=== PATIENT | male | born 1980 | race Two or more races ===

== ENCOUNTER 2017-08-05 21:41 | Inpatient (IN) | payer OTHER ==
[~2017-08-05] VITALS: Ht 167.6 cm; Wt 54.0 kg
[~2017-08-05 21:41] MED LIST: AMITRIPTYLINE H25 MG ORAL; GABAPENTIN300 MG ORAL; LANTUS5 UNITS SUBQ; LEVEMIR FL100 UNIT/1 SUBQ; METFORMIN HCL1000 M1 ORAL; NOVOLOG100 UNITS1 SUBQ
[2017-08-05] MEDS ORDERED: Morphine Sulfate 4mg/ml Inj IVP ONE (22:30)
[2017-08-05 22:41] LABS: HEMATOCRIT 51.7 % (42.0-52.0); HEMOGLOBIN 17.3 G/DL (14.2-18.0); MEAN CORPUSCULAR VOLUME 91 FL (80-99); PLATELET COUNT 376 K/UL (150-450); RED CELL DISTRIBUTION WIDTH 10.9 % (11.6-14.8); WHITE BLOOD COUNT 17.2 K/UL (4.8-10.8)
[2017-08-05 22:43] LABS: BASOPHILS % (AUTO) 0.6 % (0.0-2.0); LYMPHOCYTES % (AUTO) 6.2 % (20.0-45.0); MONOCYTES % (AUTO) 5.8 % (1.0-10.0); NEUTROPHILS % (AUTO) 87.3 % (45.0-75.0)
[2017-08-05 22:49] VITALS: BP_SYST 110; BP_SYST 121; BP_DIAS 63; BP_DIAS 75
[2017-08-05 23:41] LABS: ALBUMIN 4.2 G/DL (3.4-5.0); BILIRUBIN,TOTAL 0.7 MG/DL (0.2-1.0); BLOOD UREA NITROGEN 28 mg/dL (7-18); CALCIUM 8.9 MG/DL (8.5-10.1); CREATININE 1.9 MG/DL (0.55-1.30)
[2017-08-05 23:46] LABS: APPEARANCE,URINE CLEAR; BILIRUBIN, URINE NEGATIVE (NEGATIVE); COLOR,URINE PALE YELLOW; GLUCOSE, URINE (UA) 4+ (NEGATIVE); KETONES,URINE 4+ (NEGATIVE); LEUKOCYTE ESTERASE ,URINE NEGATIVE (NEGATIVE); NITRITE,URINE NEGATIVE (NEGATIVE); PH,URINE 5 (4.5-8.0); PROTEIN,URINE 2+ (NEGATIVE); UROBILINOGEN,URINE NORMAL MG/DL (0.0-1.0)
[2017-08-06] VITALS (20 sets, daily range): BP systolic 100–138; BP diastolic 56–107
[2017-08-06 00:09] LABS: ALANINE AMINOTRANSFERASE 32 U/L (12-78); ALKALINE PHOSPHATASE 137 U/L (46-116); ANION GAP 34 mmol/L (5-15); ASPARTATE AMINO TRANSFERASE 36 U/L (15-37); CHLORIDE 91 MMOL/L (98-107); SODIUM 130 MMOL/L (136-145)
[2017-08-06 00:19] LABS: CARBON DIOXIDE 6 MMOL/L (21-32); POTASSIUM 5.7 MMOL/L (3.5-5.1)
[2017-08-06] MEDS ORDERED: Morphine Sulfate 4mg/ml Inj IVP ONE (00:30)
[2017-08-06] MEDS ORDERED: Sodium Bicarbonate 50ml Carp IV ONE (01:45)
[2017-08-06 03:04] LABS: ALANINE AMINOTRANSFERASE 27 U/L (12-78); ALBUMIN 3.8 G/DL (3.4-5.0); ALBUMIN/GLOBULIN RATIO 1.1 (1.0-2.7); ALKALINE PHOSPHATASE 121 U/L (46-116); ANION GAP 30 mmol/L (5-15); ASPARTATE AMINO TRANSFERASE 15 U/L (15-37); BILIRUBIN,TOTAL 0.5 MG/DL (0.2-1.0); BLOOD UREA NITROGEN 30 mg/dL (7-18); CALCIUM 7.6 MG/DL (8.5-10.1); CHLORIDE 102 MMOL/L (98-107); CREATININE 1.5 MG/DL (0.55-1.30); SODIUM 138 MMOL/L (136-145)
[2017-08-06 03:08] LABS: CARBON DIOXIDE 6 MMOL/L (21-32)
[2017-08-06] MEDS ORDERED: NS w/KCl 40mEq 1,000 ML IV SCH (03:15)
[2017-08-06] MEDS: NS w/KCl 20mEq 1,000 ML IV SCH ×3 (03:45→15:39)
--- NOTE | 2017-08-06 03:53 | Emergency Room Report ---
History of Present Illness General Chief Complaint: Abnormal Labs Source: Patient, EMS Present Illness HPI 37-year-old male presents ED for evaluation. Patient brought in by EMS. Accu- Chek critically high tonight. With nausea and vomiting. History of diabetes. Took insulin just prior to arrival. Denies fevers or chills. Denies chest pain. States he is compliant with his medications. Brother aggravating relieving factors. Denies any other associated symptoms Allergies: Coded Allergies: No Known Allergies (Unverified , 08/05/17) Patient History Past Medical History: DM Past Surgical History: none Pertinent Family History: none Social History: Denies: smoking, alcohol use, drug use Immunizations: UTD Reviewed Nursing Documentation: PMH: Agreed, PSxH: Agreed Nursing Documentation-PMH Hx Diabetes: Yes Review of Systems All Other Systems: negative except mentioned in HPI Physical Exam Vital Signs Date Time Temp Pulse Resp B/P (MAP) Pulse Ox O2 Delivery O2 Flow Rate FiO2 08/05/17 21:36 92.9 96 26 135/82 98 Room Air 92.8 Sp02 EP Interpretation: reviewed, normal General Appearance: alert, GCS 15, non-toxic, mild distress Head: normocephalic, atraumatic Eyes: bilateral eye normal inspection, bilateral eye PERRL ENT: hearing grossly normal, normal pharynx, no angioedema, normal voice Neck: full range of motion, supple/symm/no masses Respiratory: chest non-tender, lungs clear, normal breath sounds, speaking full sentences Cardiovascular #1: regular rate, rhythm, no edema Cardiovascular #2: 2+ carotid (R), 2+ carotid (L), 2+ radial (R), 2+ radial (L) , 2+ dorsalis pedis (R), 2+ dorsalis pedis (L) Gastrointestinal: normal bowel sounds, non tender, soft, non-distended, no guarding, no rebound Rectal: deferred Genitourinary: normal inspection, no CVA tenderness Musculoskeletal: back normal, gait/station normal, normal range of motion, non- tender Neurologic: alert, oriented x3, responsive, motor strength/tone normal, sensory intact, speech normal Psychiatric: judgement/insight normal, memory normal, mood/affect normal, no suicidal/homicidal ideation Reflexes: 3+ bicep (R), 3+ bicep (L), 3+ tricep (R), 3+ tricep (L), 3+ knee (R) , 3+ knee (L) Skin: normal color, no rash, warm/dry, well hydrated Lymphatic: no adenopathy Procedures Critical Care Time Critical Care Time i. I feel this is a highly complex case requiring extensive working including EKG/Rhythm strip, Xray/CT/US, Blood/urine lab work, repeat exams while in ED, and administration of strong opiates/narcotics for pain control, admission to hospital or close patient follow up. Total time: 30 min bedside evaluation and treatment excludes procedures (EKG). Reason for critical care: DKA Possible complications: hypotension, hypertension, IL, shock, arrhythmias, metabolic acidosis, end organ damage, respiratory failure. Interventions: Labs, IV fluids, ABG. Insulin. Insulin drip. Course: Patient presenting with critically high Accu-Chek. History of diabetes. Glucose greater than 500. Bicarbonate 6. Anion gap greater than 30. Ketones positive. Given IV fluids. Started on insulin bolus. Started on insulin drip. Consultations: nursing staff, EMS, family Performed by: Dr Gore Tolerated well condition = critical j. because of unstable vital signs this patient had a condition that could potentially threaten life or limb. I feel this is a critical patient who required my full attention while patient was considered critical. Total Critical Care Time excluding procedures was greater than 35 minutes Medical Decision Making Diagnostic Impression: Primary Impression: DKA (diabetic ketoacidoses) Qualified Codes: E13.10 - Other specified diabetes mellitus with ketoacidosis without coma Additional Impression: Renal insufficiency ER Course Hospital Course 37-year-old male presenting to ED with nausea/vomiting, glucometer critically high Differential diagnoses include: ETOH/drug ingestion, sepsis, DKA Clinical course Patient placed on stretcher. On gambling monitor. After initial history and physical I ordered labs, IVFs Labs-glucose greater than 500, anion gap > 30, bicarbonate 6, BUN/creatinine elevated. Leukocytosis noted. K 5.7 Given 2 L of IV fluids, Insulin bolus given, insulin drip started pH 6.9 on ABG. given 2 amps of bicarbonate Patient has [employer] insurance. However unstable for transfer. approved to admit here Case discussed with Dr. Baires and he agreed to accept the patient to his service for further care and support i. I feel this is a highly complex case requiring extensive working including EKG/Rhythm strip, Xray/CT/US, Blood/urine lab work, repeat exams while in ED, and administration of strong opiates/narcotics for pain control, admission to hospital or close patient follow up. j. because of unstable vital signs this patient had a condition that could potentially threaten life or limb. I feel this is a critical patient who required my full attention while patient was considered critical. Total Critical Care Time excluding procedures was greater than 35 minutes diagnosis - DKA admitted to ICU in critical condition Labs Test 08/05/17 22:10 08/05/17 23:15 08/06/17 01:08 08/06/17 02:39 White Blood Count 17.2 K/UL (4.8-10.8) Red Blood Count 5.70 M/UL (4.70-6.10) Hemoglobin 17.3 G/DL (14.2-18.0) Hematocrit 51.7 % (42.0-52.0) Mean Corpuscular Volume 91 FL (80-99) Mean Corpuscular Hemoglobin 30.4 PG (27.0-31.0) Mean Corpuscular Hemoglobin Concent 33.5 G/DL (32.0-36.0) Red Cell Distribution Width 10.9 % (11.6-14.8) Platelet Count 376 K/UL (150-450) Mean Platelet Volume 6.5 FL (6.5-10.1) Neutrophils (%) (Auto) 87.3 % (45.0-75.0) Lymphocytes (%) (Auto) 6.2 % (20.0-45.0) Monocytes (%) (Auto) 5.8 % (1.0-10.0) Eosinophils (%) (Auto) 0.0 % (0.0-3.0) Basophils (%) (Auto) 0.6 % (0.0-2.0) Sodium Level 130 MMOL/L (136-145) 138 MMOL/L (136-145) Potassium Level 5.7 MMOL/L (3.5-5.1) 4.0 MMOL/L (3.5-5.1) Chloride Level 91 MMOL/L (98-107) 102 MMOL/L (98-107) Carbon Dioxide Level 6 MMOL/L (21-32) 6 MMOL/L (21-32) Anion Gap 34 mmol/L (5-15) 30 mmol/L (5-15) Blood Urea Nitrogen 28 mg/dL (7-18) 30 mg/dL (7-18) Creatinine 1.9 MG/DL (0.55-1.30) 1.5 MG/DL (0.55-1.30) Estimat Glomerular Filtration Rate 39.9 mL/min (>60) 52.4 mL/min (>60) Glucose Level 568 MG/DL (74-106) 410 MG/DL (74-106) Calcium Level 8.9 MG/DL (8.5-10.1) 7.6 MG/DL (8.5-10.1) Magnesium Level 2.7 MG/DL (1.8-2.4) Total Bilirubin 0.7 MG/DL (0.2-1.0) 0.5 MG/DL (0.2-1.0) Aspartate Amino Transf (AST/SGOT) 36 U/L (15-37) 15 U/L (15-37) Alanine Aminotransferase (ALT/SGPT) 32 U/L (12-78) 27 U/L (12-78) Alkaline Phosphatase 137 U/L (46-116) 121 U/L (46-116) Total Protein 8.6 G/DL (6.4-8.2) 7.3 G/DL (6.4-8.2) Albumin 4.2 G/DL (3.4-5.0) 3.8 G/DL (3.4-5.0) Globulin 4.4 g/dL 3.5 g/dL Albumin/Globulin Ratio 1.0 (1.0-2.7) 1.1 (1.0-2.7) Lipase 54 U/L (73-393) Acetone Level Positive-small (NEGATIVE) Urine Color Pale yellow Urine Appearance Clear Urine pH 5 (4.5-8.0) Urine Specific [place] 1.020 (1.005-1.035) Urine Protein 2+ (NEGATIVE) Urine Glucose (UA) 4+ (NEGATIVE) Urine Ketones 4+ (NEGATIVE) Urine Occult Blood 1+ (NEGATIVE) Urine Nitrite Negative (NEGATIVE) Urine Bilirubin Negative (NEGATIVE) Urine Urobilinogen Normal MG/DL (0.0-1.0) Urine Leukocyte Esterase Negative (NEGATIVE) Urine RBC 0-2 /HPF (0 - 0) Urine WBC 0 /HPF (0 - 0) Urine Squamous Epithelial Cells Few /LPF (NONE/OCC) Urine Bacteria Few /HPF (NONE) Urine Hyaline Casts 0-2 /LPF (NONE) Urine Coarse Granular Casts 0-2 /LPF (NONE) Arterial Blood pH 6.950 (7.350-7.450) Arterial Blood Partial Pressure CO2 10.9 mmHg (35.0-45.0) Arterial Blood Partial Pressure O2 97.7 mmHg (75.0-100.0) Arterial Blood HCO3 2.4 mmol/L (22.0-26.0) Arterial Blood Oxygen Saturation 96.1 % (92.0-98.0) Arterial Blood Base Excess -27.9 Ace Test N/a Test 08/06/17 02:55 Lactic Acid Level 2.60 mmol/L (0.66-2.22) Last Vital Signs Date Time Temp Pulse Resp B/P (MAP) Pulse Ox O2 Delivery O2 Flow Rate FiO2 08/06/17 03:06 114 20 134/107 100 Room Air 08/06/17 02:04 94.7 94.7 Status: improved Disposition: ADMITTED INPATIENT Condition: Critical Referrals: [facility] (PCP) MARNI GORE M.D. Aug 06, 2017 03:53
[2017-08-06] MEDS ORDERED: D5 1/2NS w/KCl 20mEq 1,000 ML IV SCH ×2 (06:30→10:00)
[2017-08-06 07:23] LABS: ANION GAP 16 mmol/L (5-15); BLOOD UREA NITROGEN 24 mg/dL (7-18); CALCIUM 7.6 MG/DL (8.5-10.1); CARBON DIOXIDE 14 MMOL/L (21-32); CHLORIDE 110 MMOL/L (98-107); CREATININE 1.1 MG/DL (0.55-1.30); POTASSIUM 4.3 MMOL/L (3.5-5.1); SODIUM 140 MMOL/L (136-145)
[2017-08-06 07:28] LABS: ALANINE AMINOTRANSFERASE 24 U/L (12-78); ALBUMIN 3.2 G/DL (3.4-5.0); ALKALINE PHOSPHATASE 96 U/L (46-116); ASPARTATE AMINO TRANSFERASE 20 U/L (15-37); BILIRUBIN,TOTAL 0.6 MG/DL (0.2-1.0)
[2017-08-06] MEDS ORDERED: LANTUS SOL100 UNIT/1 SUBQ (08:34)
--- NOTE | 2017-08-06 09:43 | Diagnostic Imaging Report ---
Indication: Shortness of breath Technique: One view of the chest Comparison: none Findings: Lungs and pleural spaces are clear. Heart size is normal Impression: No acute process
[2017-08-06] MEDS: Insulin Rate Change 1 Each MISC PRN ×3 (11:09→13:40)
--- NOTE | 2017-08-06 11:10 | Pulmonolgy Critical Care Note ---
Critical Care - Asmt/Plan Assessment/Plan: ASSESSMENT DKA DM type 1 intractable n/v dehydration ( due to n/v) LAKE 2 to dehydration lactic acidosis leukocytosis URI PLAN OF CARE ICU care generous IV hydration insulin gtt per protocol monitor lytes, renal parameters, correct lytes as needed, avoid nephrotoxic check HgA1c endo eval DVT prophylaxis a/emetic prn diet as tolerated symptomatic care; CXR negative, influenza screen negative case discussed and evaluated by supervising physician Critical Care - Objective Last 24 Hour Vital Signs Date Time Temp Pulse Resp B/P (MAP) Pulse Ox O2 Delivery O2 Flow Rate FiO2 08/06/17 10:25 99.0 08/06/17 10:00 92 14 110/65 100 Room Air 08/06/17 09:04 99.0 98 11 112/77 100 Room Air 99.0 08/06/17 08:50 98.9 94 14 129/85 100 Room Air 08/06/17 07:02 98 11 112/77 100 Room Air 08/06/17 06:16 99.0 106 14 114/75 100 Room Air 99.0 08/06/17 05:20 97.9 97.9 08/06/17 04:09 98.0 115 30 135/98 100 Room Air 98.0 08/06/17 03:06 114 20 134/107 100 Room Air 08/06/17 02:04 94.7 112 25 138/97 100 Room Air 94.7 08/06/17 00:30 92.4 92.4 08/05/17 22:49 20 121/75 100 Room Air 08/05/17 21:36 92.9 96 26 135/82 98 Room Air 92.8 Status: awake Condition: critical HEENT: atraumatic, normocephalic Neck: full ROM Lungs: clear Heart: HR/BP stable - SR on tele , regular Abdomen: soft, non-tender, active bowel sounds Extremities: no C/C/E Micro: Microbiology Date/Time Source Procedure Growth Status 08/06/17 04:50 Nasal Nares Influenza Types A,B Antigen (ANTOINETTE) - Final Complete Accucheck: 120 Critical Care - Subjective ROS Limited/Unobtainable: No Interval Events: patient with DKA, had n/v/, prior URI sx on insulin gtt denies chest pain, SOB reports compliance with insulin at home Condition: critical IV Access: peripheral EKG Rhythm: Sinus Rhythm Fluids: D51/2 NS + 20 KCL at 100 Drips: Insulin gtt 0.8 u/hr I&O: Intake and Output 08/05/17 08/06/17 18:59 06:59 Intake Total 3480 ml Balance 3480 ml Intake Oral 480 ml IV Total 3000 ml # Voids 4 CXR: no acute cardiopulmonary pathology [facility]Bebe Mora NP Aug 06, 2017 11:09
[2017-08-06 11:39] LABS: BASOPHILS % (AUTO) 0.4 % (0.0-2.0); HEMATOCRIT 39.7 % (42.0-52.0); HEMOGLOBIN 14.2 G/DL (14.2-18.0); LYMPHOCYTES % (AUTO) 6.2 % (20.0-45.0); MEAN CORPUSCULAR VOLUME 86 FL (80-99); MONOCYTES % (AUTO) 12.1 % (1.0-10.0); NEUTROPHILS % (AUTO) 81.3 % (45.0-75.0); PLATELET COUNT 290 K/UL (150-450); RED BLOOD COUNT 4.63 M/UL (4.70-6.10); RED CELL DISTRIBUTION WIDTH 10.2 % (11.6-14.8); WHITE BLOOD COUNT 13.1 K/UL (4.8-10.8)
[2017-08-06 11:50] LABS: ALANINE AMINOTRANSFERASE 22 U/L (12-78); ALBUMIN 3.3 G/DL (3.4-5.0); ALBUMIN/GLOBULIN RATIO 1.1 (1.0-2.7); ALKALINE PHOSPHATASE 94 U/L (46-116); ANION GAP 9 mmol/L (5-15); ASPARTATE AMINO TRANSFERASE 11 U/L (15-37); BILIRUBIN,TOTAL 0.4 MG/DL (0.2-1.0); BLOOD UREA NITROGEN 21 mg/dL (7-18); CALCIUM 8.3 MG/DL (8.5-10.1); CARBON DIOXIDE 21 MMOL/L (21-32); CHLORIDE 108 MMOL/L (98-107); PHOSPHORUS 1.5 MG/DL (2.5-4.9); SODIUM 138 MMOL/L (136-145)
[2017-08-06] MEDS: Heparin 5000 units/ml inj SUBQ SCH ×2 (13:40→21:17)
--- NOTE | 2017-08-06 14:08 | Cardiology Report ---
APPROVED REPORT EKG Measurement Heart [id number] Normal sinus rhythm Rightward axis T wave abnormality, consider lateral ischemia Prolonged QT Abnormal ECG
--- NOTE | 2017-08-06 14:36 | History & Physical ---
History and Physical History & Physicial Jai Baires MD Aug 06, 2017 14:36
[2017-08-06] MEDS ORDERED: cefTRIAXone 1 GM in NS 55 ML IVPB SCH (15:00)
[2017-08-06] MEDS ORDERED: Potassium Phosphate 30 MM in NS 275 ML IV ONE (16:30)
[2017-08-06] MEDS: NovoLOG Insulin Flexpen SUBQ SCH ×3 (17:00→21:13)
[2017-08-06] MEDS ORDERED: Levemir Flexpen SUBQ ONE (23:45)
[2017-08-07] VITALS (11 sets, daily range): BP systolic 98–118; BP diastolic 61–78
[2017-08-07] MEDS ORDERED: Levemir Flexpen SUBQ ONE (01:30)
[2017-08-07] MEDS: NS w/KCl 20mEq 1,000 ML IV SCH ×3 (01:40→17:00)
--- NOTE | 2017-08-07 03:30 | History and Physical Report ---
DATE OF ADMISSION: 08/06/2017 CHIEF COMPLAINT: Uncontrolled diabetes. HISTORY OF PRESENT ILLNESS: This is a 37-year-old gentleman with past medical history significant for diabetes type 1, who presented to emergency room complaining about elevated blood glucose level on the Accu-Chek. The patient stated that he has been having nausea, vomiting, abdominal discomfort and took insulin just prior to arrival to the emergency room. Denies any fever or chills. Denies any chest pain or shortness of breath, however, he had upper respiratory symptoms last Wednesday, 4 days ago and he stated that he has been aggressively monitoring his blood sugar and compliant with his insulin regimen. Shortly after initial evaluation in the emergency, the patient was noted to have glucose level above 500 and subsequently, the patient had ketone positive and admitted to the hospital with DKA as well as metabolic acidosis and acute renal insufficiency. PAST MEDICAL HISTORY: Significant for diabetes type 1 as well as appendicitis, but no surgical history. MEDICATIONS: At home significant for Lantus insulin 26 units at night. He does not take any other medication or insulin besides that. ALLERGIES: No known drug allergies. SOCIAL HISTORY: Denies any smoking, alcohol, or drugs. FAMILY HISTORY: Noncontributory except diabetes runs in the family. REVIEW OF SYSTEMS: Mostly as above. Denies any dysuria, frequency, or hematuria. Complained about URI symptoms. Denies any hemoptysis or hematochezia. Denies any fever or chills. Denies any loss of consciousness. PHYSICAL EXAMINATION: VITAL SIGNS: On admission, temperature , pulse of 96, respiration 26, blood pressure 135/82. GENERAL: The patient is awake, responsive, in no acute distress. HEAD AND NECK: Pupils are equal and reactive to light. Extraocular movements are intact. NECK: Supple. No JVD. LUNGS: Good air entry. No wheezing or rales. HEART: S1, S2. Regular rhythm. No gallops. ABDOMEN: Soft, nondistended, and nontender. Positive bowel sounds. No rebound tenderness. No fluid shift. EXTREMITIES: No cyanosis, clubbing, or edema. NEUROLOGIC: Cranial nerves II through XII grossly intact. Motor is 5/5 in all extremities. RECTAL: Refused and deferred. GENITOURINARY: Refused and deferred. PSYCHIATRIC EVALUATION: Mood and affect is intact. LABORATORY AND DIAGNOSTIC DATA: On admission, sodium 130, potassium 5.7, chloride 91, bicarbonate 6, BUN 28, creatinine 1.9, and glucose 568. Magnesium 2.7. AST of 36, ALT of 32, and lipase is 54. Acetone level is small positive. UA is +2 protein, +3 glucose, +4 ketones, nitrite negative, leukocytes negative. WBC of 17, hemoglobin of 17, hematocrit 51, platelet is 376,000. ABG on the room air, pH of 6.950, pCO2 of 10, pO2 of 97, and saturating 96%. The patient's chest x-ray is unremarkable. EKG was noted to be normal sinus rhythm, ventricular rate of 94, with rightward axis, T-wave abnormalities, consider lateral ischemia, prolonged QT. ASSESSMENT: 1. Diabetic ketoacidosis. 2. Diabetic type 1. 3. Intractable nausea and vomiting. 4. Severe dehydration. 5. Acute kidney injury secondary to dehydration. 6. Lactic acidosis. 7. Leukocytosis. 8. Hyperkalemia. 9. Upper respiratory infection. PLAN: Admit the patient to ICU. We will follow up with the laboratory. Discussed case with Dr. Raygoza, Pulmonary/Critical Care. Aggressive IV hydration with insulin drip. Monitor laboratory closely as well as culture. Broad-spectrum antibiotic with Rocephin and we will follow up with septic workup. Code status is Full. DVT prophylaxis, heparin subcutaneous. Jai Baires M.D. DR: Damion JOB#: [id number] CC:
[2017-08-07 05:24] LABS: BASOPHILS % (AUTO) 0.7 % (0.0-2.0); EOSINOPHILS % (AUTO) 0.1 % (0.0-3.0); HEMATOCRIT 34.7 % (42.0-52.0); HEMOGLOBIN 12.6 G/DL (14.2-18.0); LYMPHOCYTES % (AUTO) 23.6 % (20.0-45.0); MEAN CORPUSCULAR VOLUME 85 FL (80-99); MONOCYTES % (AUTO) 8.7 % (1.0-10.0); NEUTROPHILS % (AUTO) 66.9 % (45.0-75.0); PLATELET COUNT 251 K/UL (150-450); RED CELL DISTRIBUTION WIDTH 10.2 % (11.6-14.8); WHITE BLOOD COUNT 8.8 K/UL (4.8-10.8)
[2017-08-07 05:46] LABS: ANION GAP 10 mmol/L (5-15); BLOOD UREA NITROGEN 13 mg/dL (7-18); CALCIUM 8.2 MG/DL (8.5-10.1); CARBON DIOXIDE 24 MMOL/L (21-32); CHLORIDE 106 MMOL/L (98-107); CREATININE 0.6 MG/DL (0.55-1.30); PHOSPHORUS 1.7 MG/DL (2.5-4.9); SODIUM 139 MMOL/L (136-145)
[2017-08-07 05:48] LABS: POTASSIUM 2.5 MMOL/L (3.5-5.1)
[2017-08-07] MEDS: Heparin 5000 units/ml inj SUBQ SCH ×3 (06:00→17:32)
[2017-08-07] MEDS: NovoLOG Insulin Flexpen SUBQ SCH ×10 (06:30→17:11)
[2017-08-07] MEDS ORDERED: NovoLOG Insulin Flexpen SUBQ SCH ×2 (06:30→16:30)
--- NOTE | 2017-08-07 08:15 | Consultation ---
DATE OF CONSULTATION: 08/06/2017 NOTE: "POOR AUDIO" ENDOCRINOLOGY CONSULTATION CONSULTING PHYSICIAN: Dominci Joe M.D. REFERRING PHYSICIAN: Jai Baires M.D. REASON FOR CONSULTATION: I was asked to see this 37-year-old male by Dr. Jai Baires in Endocrinology consultation for evaluation and management _of uncontrolled diabetes _. HISTORY OF PRESENT ILLNESS: The patient has a long history of type 1 diabetes mellitus treated with Lantus insulin 30 units at night time, Novolog __, insulin drip has been discontinued. PAST MEDICAL HISTORY: Negative. PAST SURGICAL HISTORY: Negative. FAMILY HISTORY: Noncontributory. PHYSICAL EXAMINATION: GENERAL: The patient is in no acute distress. VITAL SIGNS: Blood pressure 110/64, pulse 84, respiratory rate 18, and temperature . HEENT: Unremarkable. NECK: Unremarkable. LUNGS: Clear. HEART: Heart sounds regular. ABDOMEN: Soft. Bowel sounds present. EXTREMITIES: Lower extremity reveal no edema. NEUROLOGIC: Cranial nerves II through XII are intact. Toes are downgoing to plantar stimulation. LABORATORY AND DIAGNOSTIC DATA: glucode 273 . _IMPRESSIONS:Diabetes Mellitus uncontrolled PLANS:Levemir 29u csc Q12hr and Sdac9edm 10u YID ac.OK to transfe o Zoran.___ _. Heath Alfaro M.D. DR: ARMANI JOB#: [id number] CC: GREGORIA
[2017-08-07] MEDS ORDERED: Heparin 5000 units/ml inj SUBQ SCH (09:00)
[2017-08-07] MEDS ORDERED: Levemir Flexpen SUBQ SCH ×4 (09:00→21:00)
--- NOTE | 2017-08-07 13:14 | Pulmonology Progress Note ---
Assessment/Plan Assessment/Plan ASSESSMENT DKA DM type 1 OOC dehydration ( due to intractable n/v) -resolved LAKE 2 to dehydration -resolved lactic acidosis-resolved leukocytosis -resolved URI PLAN OF CARE MS floor s/p ICU care with insulin gtt, anion gap closed transferred to MS floor generous IV hydration endo consult appreciated on short acting premeal and long acting insulin along with SSI as needed GhC9w-31.6 clearly not at goal BS stable in the hospital ? noncompliance leukocytosis resolved , likely reactive low K, replace K, check K and Mg in am monitor lytes, renal parameters, correct lytes as needed, avoid nephrotoxic DVT prophylaxis a/emetic prn diet as tolerated -toelrates symptomatic care; CXR negative, influenza screen negative dc plan for tomorrow if stable BS, reinforce compliance case discussed and evaluated by supervising physician Subjective Allergies: Coded Allergies: No Known Allergies (Unverified , 10/31/14) Subjective anion gap closed, insulin gtt stopped transferred to floor endo seen adn evaluated low K today Objective Last 24 Hour Vital Signs Date Time Temp Pulse Resp B/P (MAP) Pulse Ox O2 Delivery O2 Flow Rate FiO2 08/07/17 12:00 98.2 19 115/67 98 Room Air 08/07/17 09:58 98.8 08/07/17 09:16 98.8 18 116/70 99 Room Air 08/07/17 08:00 98.8 18 116/70 99 Room Air 08/07/17 06:00 79 13 113/77 99 Room Air 08/07/17 05:00 74 13 99/78 99 Room Air 08/07/17 04:00 98.1 86 11 110/74 99 Room Air 08/07/17 04:00 87 08/07/17 03:00 80 11 104/68 99 Room Air 08/07/17 02:00 85 11 109/72 99 Room Air 08/07/17 01:00 85 11 98/61 99 Room Air 08/07/17 00:00 83 08/07/17 00:00 97.9 87 11 104/65 99 Room Air 08/06/17 23:00 92 15 108/71 100 Room Air 08/06/17 22:00 86 15 100/56 100 Room Air 08/06/17 21:00 84 15 108/68 100 Room Air 08/06/17 20:00 98.3 89 10 130/68 99 Room Air 08/06/17 20:00 104 08/06/17 19:00 83 13 109/81 100 Room Air 08/06/17 18:00 83 12 121/83 100 Room Air 08/06/17 17:00 80 12 108/68 100 Room Air 08/06/17 16:00 78 08/06/17 16:00 98.4 82 16 104/74 100 Room Air 08/06/17 15:00 79 12 113/72 100 Room Air 08/06/17 14:00 74 12 118/64 100 Room Air Intake and Output 08/06/17 08/07/17 19:00 07:00 Intake Total 2452.61 ml 1450 ml Output Total 1200 ml 1000 ml Balance 1252.61 ml 450 ml Intake Oral 1550 ml 350 ml IV Total 902.61 ml 1100 ml Output Urine Total 1150 ml 1000 ml Emesis 50 ml # Voids 51 Objective Status: A/A/O x 4 male in NAD Condition: stable HEENT: atraumatic, normocephalic Neck: full ROM Lungs: clear Heart: HR/BP stable , regular Abdomen: soft, non-tender, active bowel sounds Extremities: no C/C/E Microbiology Date/Time Source Procedure Growth Status 08/06/17 02:55 Blood Blood Culture - Preliminary NO GROWTH AFTER 24 HOURS Resulted 08/06/17 02:40 Blood Blood Culture - Preliminary NO GROWTH AFTER 24 HOURS Resulted 08/06/17 04:50 Nasal Nares Influenza Types A,B Antigen (ANTOINETTE) - Final Complete Laboratory Tests 08/07/17 05:10: White Blood Count 8.8, Red Blood Count 4.10L, Hemoglobin 12.6L, Hematocrit 34.7L , Mean Corpuscular Volume 85, Mean Corpuscular Hemoglobin 30.8, Mean Corpuscular Hemoglobin Concent 36.4H, Red Cell Distribution Width 10.2L, Platelet Count 251, Mean Platelet Volume 7.2, Neutrophils (%) (Auto) 66.9, Lymphocytes (%) (Auto) 23.6, Monocytes (%) (Auto) 8.7, Eosinophils (%) (Auto) 0.1, Basophils (%) (Auto) 0.7, Sodium Level 139, Potassium Level 2.5*L, Chloride Level 106, Carbon Dioxide Level 24, Anion Gap 10, Blood Urea Nitrogen 13, Creatinine 0.6, Estimat Glomerular Filtration Rate > 60, Glucose Level 147H , Hemoglobin A1c 13.6H, Calcium Level 8.2L, Phosphorus Level 1.7L, Magnesium Level 1.9 Current Medications Medications (Trade) Dose Ordered Sig/Bayron Route PRN Reason Start Time Stop Time Status Last Admin Dose Admin Ceftriaxone Sodium 1 gm/ Sodium Chloride 55 ml @ 110 mls/hr Q24H IVPB 08/07/17 15:00 08/13/17 14:59 Dextrose (Dextrose 50%) STAT PRN IV Hypoglycemia 08/07/17 08:00 09/06/17 07:59 Heparin Sodium (Porcine) (Heparin 5000 units/ml) 5,000 units BID SUBQ 08/07/17 09:00 09/05/17 13:59 08/07/17 09:14 Ibuprofen (Advil) 400 mg Q6H PRN ORAL headache or pain 08/07/17 09:00 09/05/17 08:59 08/07/17 08:59 Insulin Aspart (NovoLOG) BEFORE MEALS AND HS SUBQ 08/07/17 07:00 09/06/17 06:59 08/07/17 12:23 Insulin Aspart (NovoLOG) 5 units BEFORE MEALS SUBQ 08/07/17 07:00 09/06/17 06:59 08/07/17 12:21 Insulin Detemir (Levemir) 10 units EVERY 12 HOURS SUBQ 08/07/17 09:00 09/06/17 08:59 08/07/17 10:07 Ondansetron HCl (Zofran) 4 mg Q6H PRN IVP Nausea & Vomiting 08/07/17 10:00 09/05/17 09:59 Pantoprazole (Protonix) 40 mg DAILY ORAL 08/07/17 09:00 09/05/17 09:59 08/07/17 08:55 Potassium Chloride (K-Dur) 40 meq DAILY ORAL 08/08/17 09:00 09/07/17 08:59 Potassium Chloride (K-Dur) 40 meq EVERY 8 HOURS ORAL 08/07/17 14:00 08/07/17 22:01 Sodium Chloride 1,000 ml @ 100 mls/hr Q10H IV 08/07/17 07:00 09/05/17 14:59 08/07/17 09:00 Jaron Montgomery (Vanchtein)et [employer] Aug 07, 2017 13:14
[2017-08-07] MEDS ORDERED: CEFTRIAXONE1 G2 IVPB (13:20)
[2017-08-07] MEDS ORDERED: ROCEPHIN250 MG IM (13:20)
[2017-08-07] MEDS ORDERED: HEPARIN SO5000 UNIT2 SUBQ (13:21)
[2017-08-07] MEDS ORDERED: IBUPROFEN600 MG ORAL (13:22)
[2017-08-07] MEDS ORDERED: NOVOLOG100 UNITS1 SQ (13:23)
[2017-08-07] MEDS ORDERED: NOVOLOG100 UNITS1 SUBQ (13:25)
[2017-08-07] MEDS ORDERED: LEVEMIR FL100 UNIT/1 SUBQ (13:26)
[2017-08-07] MEDS ORDERED: KCL 20 MEQ20 MEQ/101 IV (13:28)
[2017-08-07] MEDS ORDERED: ZOFRAN 4 MG4 MG/2 ML IV (13:29)
[2017-08-07] MEDS ORDERED: PROTONIX40 MG ORAL (13:30)
[2017-08-07] MEDS ORDERED: POTASSIUM CHLO20 ME1 ORAL (13:32)
--- NOTE | 2017-08-07 14:10 | Internal Med Progress Note ---
Subjective Date of Service: Aug 07, 2017 Physician Name BeyRitika Attending Physician Jai Baires MD Current Medications Medications (Trade) Dose Ordered Sig/Bayron Route PRN Reason Start Time Stop Time Status Last Admin Dose Admin Ceftriaxone Sodium 1 gm/ Sodium Chloride 55 ml @ 110 mls/hr Q24H IVPB 08/07/17 15:00 08/13/17 14:59 Dextrose (Dextrose 50%) STAT PRN IV Hypoglycemia 08/07/17 08:00 09/06/17 07:59 Heparin Sodium (Porcine) (Heparin 5000 units/ml) 5,000 units BID SUBQ 08/07/17 09:00 09/05/17 13:59 08/07/17 09:14 Ibuprofen (Advil) 400 mg Q6H PRN ORAL headache or pain 08/07/17 09:00 09/05/17 08:59 08/07/17 08:59 Insulin Aspart (NovoLOG) BEFORE MEALS AND HS SUBQ 08/07/17 07:00 09/06/17 06:59 08/07/17 12:23 Insulin Aspart (NovoLOG) 5 units BEFORE MEALS SUBQ 08/07/17 07:00 09/06/17 06:59 08/07/17 12:21 Insulin Detemir (Levemir) 10 units EVERY 12 HOURS SUBQ 08/07/17 09:00 09/06/17 08:59 08/07/17 10:07 Ondansetron HCl (Zofran) 4 mg Q6H PRN IVP Nausea & Vomiting 08/07/17 10:00 09/05/17 09:59 Pantoprazole (Protonix) 40 mg DAILY ORAL 08/07/17 09:00 09/05/17 09:59 08/07/17 08:55 Potassium Chloride (K-Dur) 40 meq DAILY ORAL 08/08/17 09:00 09/07/17 08:59 Potassium Chloride (K-Dur) 40 meq EVERY 8 HOURS ORAL 08/07/17 14:00 08/07/17 22:01 Sodium Chloride 1,000 ml @ 100 mls/hr Q10H IV 08/07/17 07:00 09/05/17 14:59 08/07/17 09:00 Allergies: Coded Allergies: No Known Allergies (Unverified , 10/31/14) ROS Limited/Unobtainable: No Constitutional: Reports: no symptoms HEENT: Reports: no symptoms Cardiovascular: Reports: no symptoms Respiratory: Reports: no symptoms Gastrointestinal/Abdominal: Reports: no symptoms Genitourinary: Reports: no symptoms Neurologic/Psychiatric: Reports: no symptoms Subjective 37 YO M admitted with nausea and vomiting. Now diabetic ketoacidosis. Cover for Int Neal-Dr Baires. Await transfer to [facility] Objective Last Vital Signs Date Time Temp Pulse Resp B/P (MAP) Pulse Ox O2 Delivery O2 Flow Rate FiO2 08/07/17 12:00 98.2 19 115/67 98 Room Air 08/07/17 06:00 79 General Appearance: WD/WN, no apparent distress, alert EENT: PERRL/EOMI, normal ENT inspection Neck: non-tender, normal alignment, supple, normal inspection Cardiovascular: normal peripheral pulses, normal rate, regular rhythm, no gallop/murmur, no JVD Respiratory/Chest: chest wall non-tender, lungs clear, normal breath sounds, no respiratory distress, no accessory muscle use Abdomen: normal bowel sounds, non tender, soft, no organomegaly, no mass Extremities: normal range of motion, non-tender Neurologic: specialist physician II-XII grossly normal, no motor/sensory deficits Skin: normal pigmentation, warm/dry Laboratory Tests Test 08/07/17 05:10 White Blood Count 8.8 K/UL (4.8-10.8) Red Blood Count 4.10 M/UL (4.70-6.10) L Hemoglobin 12.6 G/DL (14.2-18.0) L Hematocrit 34.7 % (42.0-52.0) L Mean Corpuscular Volume 85 FL (80-99) Mean Corpuscular Hemoglobin 30.8 PG (27.0-31.0) Mean Corpuscular Hemoglobin Concent 36.4 G/DL (32.0-36.0) H Red Cell Distribution Width 10.2 % (11.6-14.8) L Platelet Count 251 K/UL (150-450) Mean Platelet Volume 7.2 FL (6.5-10.1) Neutrophils (%) (Auto) 66.9 % (45.0-75.0) Lymphocytes (%) (Auto) 23.6 % (20.0-45.0) Monocytes (%) (Auto) 8.7 % (1.0-10.0) Eosinophils (%) (Auto) 0.1 % (0.0-3.0) Basophils (%) (Auto) 0.7 % (0.0-2.0) Sodium Level 139 MMOL/L (136-145) Potassium Level 2.5 MMOL/L (3.5-5.1) *L Chloride Level 106 MMOL/L (98-107) Carbon Dioxide Level 24 MMOL/L (21-32) Anion Gap 10 mmol/L (5-15) Blood Urea Nitrogen 13 mg/dL (7-18) Creatinine 0.6 MG/DL (0.55-1.30) Estimat Glomerular Filtration Rate > 60 mL/min (>60) Glucose Level 147 MG/DL (74-106) H Hemoglobin A1c 13.6 % (4.3-6.0) H Calcium Level 8.2 MG/DL (8.5-10.1) L Phosphorus Level 1.7 MG/DL (2.5-4.9) L Magnesium Level 1.9 MG/DL (1.8-2.4) Microbiology Date/Time Source Procedure Growth Status 08/06/17 02:55 Blood Blood Culture - Preliminary NO GROWTH AFTER 24 HOURS Resulted 08/06/17 02:40 Blood Blood Culture - Preliminary NO GROWTH AFTER 24 HOURS Resulted 08/06/17 04:50 Nasal Nares Influenza Types A,B Antigen (ANTOINETTE) - Final Complete Intake and Output 08/06/17 08/07/17 19:00 07:00 Intake Total 2452.61 ml 1450 ml Output Total 1200 ml 1000 ml Balance 1252.61 ml 450 ml Intake Oral 1550 ml 350 ml IV Total 902.61 ml 1100 ml Output Urine Total 1150 ml 1000 ml Emesis 50 ml # Voids 51 Assessment/Plan Problem List: (1) Diabetes type I Assessment & Plan: Stable. Cont novolog sliding scale. (2) Hypokalemia Assessment & Plan: replace potassium (3) DKA (diabetic ketoacidoses) Assessment & Plan: resolved (4) Renal insufficiency Assessment & Plan: Improved (5) Dehydration (6) Nausea & vomiting Assessment & Plan: resolved (7) Abdominal pain Assessment/Plan Discharge to [facility] RITIKA Costello Aug 07, 2017 14:10
[2017-08-07] MEDS ORDERED: cefTRIAXone 1 GM in NS 55 ML IVPB SCH (15:00)
[2017-08-07] MEDS ORDERED: Tubing IV Secondary IV ONE ×2 (17:32)
[2017-08-07] MEDS ORDERED: D5NS 1000ml IV ONE (17:32)
--- NOTE | 2017-08-11 09:56 | Discharge Summary ---
Discharge Summary Hospital Course Date of Admission Aug 06, 2017 at 02:02 Date of Discharge Aug 07, 2017 at 18:57 Admitting Diagnosis Diabetic Ketoacidosis DAVID Maldonado is a 37 year old male who was admitted on Aug 06, 2017 at 02: 02 for Diabetic Ketoacidosis Hospital Course dc summary [id number] Discharge Medications Continued Medications: Ceftriaxone Sod (Rocephin) 250 Mg Vial 250 MG IM, VIAL Heparin Sod (Porcine) (Heparin Sodium*) 5 000/1 Ml Vial 5000 UNITS SUBQ EVERY 12 HOURS, VIAL Ibuprofen* (Motrin*) 600 Mg Tablet 400 MG ORAL Q6H PRN for For Pain, #30 TAB Insulin Aspart (Novolog Flexpen) 100 Unit/1 Ml Insuln.pen SQ BEFORE MEALS AND HS Insulin Aspart (Novolog Flexpen) 100 Unit/1 Ml Insuln.pen 5 SUBQ BEFORE MEALS Insulin Detemir (Levemir Flexpen) 100 Unit/1 Ml Insuln.pen 10 SUBQ Q12HR, #300 UNITS 0 Refills Ondansetron* (Zofran*) 4 Mg/2 Ml Vial 4 MG IV Q6H PRN for Nausea & Vomiting, VIAL Pantoprazole* (Protonix*) 40 Mg Tablet.dr 40 MG ORAL DAILY, TAB Potassium Chloride In 0.9%Nacl (Kcl 20 Meq-Ns 1,000 Ml Iv Soln) 20 Meq/1000 Ml Iv.soln 20 MEQ IV Potassium Chloride* (K-Dur*) 20 Meq Tab.er.prt 40 MEQ ORAL Q8HR, #7 TAB 0 Refills Discharge Condition Upon Discharge: stable Discharge Disposition Patient was discharged to [facility] Discharge Diagnoses: Ulises (Margarita)Bebe NP Aug 11, 2017 09:56
--- NOTE | 2017-08-11 17:30 | Discharge Summary 2 SIG ---
DATE OF ADMISSION: 08/06/2017 DATE OF DISCHARGE: 08/07/2017 REASON FOR ADMISSION: 37-year-old male with a history of diabetes mellitus type 1 presented to emergency room for evaluation. The patient had nausea and vomiting. The patient took the insulin prior to arrival. He denied fever or chills. He denied chest pain. He reported compliance with medications. The patient also reported evidence of upper respiratory infection prior to development of these symptoms. Accu-Chek was critically high as per paramedics. Upon evaluation in the emergency room, the patient was hypothermic. The patient had leukocytosis, WBC -17.2. Sodium -130, potassium- 5.7, BUN -28, and creatinine -1.9. Magnesium -2.7. Troponin was negative. Lactic acid - 2.6. Urinalysis showed no evidence of UTI. ABG revealed severe acute metabolic acidosis with pH -6.95 and bicarbonate -2.4. Anion gap -34. The patient admitted with diabetic ketoacidosis, dehydration, acute kidney injury, lactic acidosis, leukocytosis, and upper respiratory infection. HOSPITAL COURSE: The patient was admitted. The patient initially was in the ICU. The patient started on generous IV fluids. The patient started on insulin drip as per protocol. Blood sugar was closely monitored. Endocrinology consult was requested. Hemoglobin A1c- 13.6, clearly not at goal. The patient will need further optimization of anti-glycemic regimen as outpatient. At this point, anion gap was closed, and the patient subsequently was transitioned from insulin drip to regimen of short-acting premeal insulin and long acting Levemir insulin along with sliding scale of insulin as needed. Urinalysis with no evidence of UTI. Leukocytosis resolved, likely reactive. Noted low potassium, which was replaced. Sodium stable. Renal parameters and electrolytes were closely monitored and corrected as needed. Nephrotoxics were avoided. DVT prophylaxis provided. Acute kidney injury resolved. Prior to discharge, BUN- 13 and creatinine -0.6. The patient started slowly on the diet, and was able to tolerate it. No further nausea or vomiting. Influenza screen test was negative. Blood culture were negative. Symptomatic care provided. Reinforced compliance with insulin regimen at home. The patient was subsequently transferred to [facility] as per insurance. FINAL DIAGNOSES: 1. Diabetic ketoacidosis, resolved. 2. Diabetes mellitus type 1, out of control. 3. Dehydration secondary to intractable nausea and vomiting. 4. Acute kidney injury secondary to dehydration, resolved. 5. Lactic acidosis, resolved. 6. Upper respiratory infection. 7. Leukocytosis, resolved. DISCHARGE MEDICATIONS: See medication reconciliation list. DISCHARGE INSTRUCTIONS: The patient was discharged to [facility] as per insurance plan. Jai Baires M.D. Bebe [facility]ots[facility] HospitalAbby N.PDee DR: SANDY JOB#: [id number] CC: GREGORIA
== END 2017-08-07 18:57 | DRG 638 ==
LOC: EDBD 21:41 → EMR 22:06 → EDBEDREQ 08-06 01:39 → ICU 08-06 02:02 → EDUNIT# 08-06 02:02 → EDBEDREQ 08-06 03:20 → ICU 08-06 06:05 → 4W 08-07 06:44
DX: E10.10 Type 1 diabetes mellitus with ketoacidosis without coma (principal); N17.9 Acute kidney failure, unspecified; Z79.4 Long term (current) use of insulin; E86.0 Dehydration; E87.5 Hyperkalemia; J06.9 Acute upper respiratory infection, unspecified
CPT/HCPCS: 36415; 36600; 71045; 80048; 80053; 81003; 82009; 82803; 82962; 83036; 83605; 83690; 83735; 84100; 84484; 85025; 86710; 87040; 87081; 93005; J1815; J2405; J8499; S5561

== ENCOUNTER 2018-07-07 14:02 | Inpatient (IN) | payer SELFPAY ==
[~2018-07-07] VITALS: Ht 172.7 cm; Wt 53.1 kg
[2018-07-07] VITALS (9 sets, daily range): BP systolic 100–156; BP diastolic 57–97
[~2018-07-07 14:02] MED LIST changes: +CEFTRIAXONE1 G2 IVPB; +HEPARIN SO5000 UNIT2 SUBQ; +IBUPROFEN600 MG ORAL; +KCL 20 MEQ20 MEQ/101 IV; +LANTUS SOL100 UNIT/1 SUBQ; +NOVOLOG100 UNITS1 SQ; +POTASSIUM CHLO20 ME1 ORAL; +PROTONIX40 MG ORAL; +ROCEPHIN250 MG IM; +ZOFRAN 4 MG4 MG/2 ML IV
--- NOTE | 2018-07-07 14:04 | NUR ---
ED Nurse Note: Pt brought in by [facility] c/o elevated BS >500 coming from home, pt states he had flu like s/s for couple of days and started having pleuritic chest pain on midsternal area x 2-3hrs. Pt AA&ox4, gcs=15, skin cool to touch and dry, intact, tachypnea, O2 100% on RA, pt initially on NC, per EMS statement, pt o2sat dropped to 88% on RA and applied oxygen, pt sinus tachy on cardiac technician, -n/v/d, ambulates w/ steady gait, will cont monitor, ERMD at the bedside, BS= critically high. bed lowest position, siderail x2, pt advised to notify staff if needed assist.
--- NOTE | 2018-07-07 14:16 | Emergency Room Report ---
History of Present Illness General Chief Complaint: Abnormal Labs Source: Patient, EMS Present Illness HPI Patient presents with weakness and chest pain. He is insulin dependent and took his insulin this morning. EMS had glucose > [address] Patient short of breath, dehydrated and weak. Denies vomiting or fever. Chest pain is somewhat pleuritic, R sided, rated 8/10, aching. Polies. Thirsty. Weak generalized. No rashes. H/O DKA in the past. H/O pancreatitis, denies abdominal pain. Some constipation. Depression. Last admitted July 2017. Allergies: Coded Allergies: No Known Allergies (Unverified , 10/31/14) Patient History Past Medical History: see triage record Social History: Denies: smoking Social History Narrative from home Reviewed Nursing Documentation: PMH: Agreed; PSxH: Agreed Nursing Documentation-PMH Past Medical History: No History, Except For Hx Cardiac Problems: No Hx Diabetes: Yes Hx Cancer: No Hx Gastrointestinal Problems: No Hx Neurological Problems: No Review of Systems All Other Systems: negative except mentioned in HPI Physical Exam Vital Signs Date Time Temp Pulse Resp B/P (MAP) Pulse Ox O2 Delivery O2 Flow Rate FiO2 07/07/18 13:58 97.9 115 32 138/65 92 Room Air Sp02 EP Interpretation: reviewed, abnormal - interpreted as low - however - in 10 = 100% General Appearance: mild distress, cachetic, other - Kausmal resp Head: normocephalic Eyes: bilateral eye normal inspection, bilateral eye PERRL ENT: dry mucus membranes Neck: supple Respiratory: lungs clear, other - Kaussmal resps Cardiovascular #1: no edema, tachycardia Cardiovascular #2: 2+ radial (L) Gastrointestinal: non tender, soft, decreased bowel sounds, scaphoid Genitourinary: no CVA tenderness Musculoskeletal: normal range of motion, other - atrophy Neurologic: oriented x3, DTRs symmetric, sensory intact, motor weakness - generalized Psychiatric: depressed affect Skin: no rash, other - sallo Procedures Critical Care Time Critical Care Time Total Critical Care Time: 90 min bedside evaluation and treatment excludes procedures (EKG). Reason for critical care: DKA Possible complications: hypotension, hypertension, CO, shock, arrhythmias, metabolic acidosis, end organ damage, respiratory failure. Interventions: Fluid resuscitation, insulin drip, treatment of acidosis and adjustment of IV replacement fluids Course: Patient presents with chest pain and hyperglycemia. DKA determined. Fluid resuscitation. Bicarb given based on venous blood gas. Insulin drip begun. Change fluids to include K and LR. Change fluids to include D51/2NS and K as glucose 250s. Improved mentation. Insulin drip adjusted per accucheck and repeat evaluations. Discussion with Dr. Baires. Consultations: nursing staff, EMS, pharmacy Performed by: Dr. Bishop Tolerated well condition = critical Medical Decision Making Diagnostic Impression: Primary Impression: DKA (diabetic ketoacidoses) Qualified Codes: E10.10 - Type 1 diabetes mellitus with ketoacidosis without coma ER Course Diabetic with chest pain and weakness and elevated glucose. DDX: DKA, hyperglycemic hyperosmolality, hyperglycemia, occult infection amongst others. Evaluation with EKG, CXR and labs. Treatment initially with fluid bolus and most likely will need insulin drip. Need to assess acid base balance and K. Will need ICU admission. EKG with ST. CXR hyperinflation. VBG = 7.00//20 - Bicarb 1 amp given. Glucose after bolus 395 - start insulin drip. Will also start lactated ringers with potassium. Pharmacy with changes to orders for insulin drip. When begun, glucose improved. No evidence of infectious etiology. No antibiotics initiated. Change IV to D5 1/2 NS with K. Will need to continue insulin drip. Repeat chem 6 still with gap. K+ slightly low, but being added in IV. Greatly improved VS and denies pain. Tolerating oral hydration, no vomiting. Admit ICU Dr. Baires. Laboratory Tests Test 07/07/18 14:34 07/07/18 14:35 07/07/18 16:17 07/07/18 18:35 Venous Blood pH Pending Venous Blood Partial Pressure CO2 Pending Venous Blood Partial Pressure O2 Pending Venous Blood HCO3 Pending Venous Blood Total Carbon Dioxide Pending Venous Bld O2 Saturation (Measured) 56.0 Venous Blood Oxygen Saturation Pending Venous Blood Base Excess Pending Methemoglobin 0.4 Sodium (Blood Gas) Pending White Blood Count 6.8 K/UL (4.8-10.8) Red Blood Count 5.14 M/UL (4.70-6.10) Hemoglobin 15.0 G/DL (14.2-18.0) Hematocrit 45.6 % (42.0-52.0) Mean Corpuscular Volume 89 FL (80-99) Mean Corpuscular Hemoglobin 29.2 PG (27.0-31.0) Mean Corpuscular Hemoglobin Concent 32.9 G/DL (32.0-36.0) Red Cell Distribution Width 13.2 % (11.6-14.8) Platelet Count 323 K/UL (150-450) Mean Platelet Volume 6.1 FL (6.5-10.1) L Neutrophils (%) (Auto) % (45.0-75.0) Lymphocytes (%) (Auto) % (20.0-45.0) Monocytes (%) (Auto) % (1.0-10.0) Eosinophils (%) (Auto) % (0.0-3.0) Basophils (%) (Auto) % (0.0-2.0) Differential Total Cells Counted 100 Neutrophils % (Manual) 83 % (45-75) H Lymphocytes % (Manual) 7 % (20-45) L Monocytes % (Manual) 8 % (1-10) Eosinophils % (Manual) 0 % (0-3) Basophils % (Manual) 0 % (0-2) Band Neutrophils 2 % (0-8) Platelet Estimate Adequate Platelet Morphology Normal Red Blood Cell Morphology Normal Sodium Level 140 MMOL/L (136-145) 133 MMOL/L (136-145) L Potassium Level 4.8 MMOL/L (3.5-5.1) 3.3 MMOL/L (3.5-5.1) L Chloride Level 102 MMOL/L (98-107) 103 MMOL/L (98-107) Carbon Dioxide Level 7 MMOL/L (21-32) *L 14 MMOL/L (21-32) L Anion Gap 31 mmol/L (5-15) H 16 mmol/L (5-15) H Blood Urea Nitrogen 27 mg/dL (7-18) H 20 mg/dL (7-18) H Creatinine 1.6 MG/DL (0.55-1.30) H 0.9 MG/DL (0.55-1.30) Estimate Glomerular Filtration Rate 48.4 mL/min (>60) > 60 mL/min (>60) Glucose Level 547 MG/DL (74-106) *H 149 MG/DL (74-106) #H Calcium Level 9.0 MG/DL (8.5-10.1) 7.7 MG/DL (8.5-10.1) L Magnesium Level 2.6 MG/DL (1.8-2.4) H Total Bilirubin 0.5 MG/DL (0.2-1.0) Aspartate Amino Transferase (AST) 8 U/L (15-37) L Alanine Aminotransferase (ALT) 20 U/L (12-78) Alkaline Phosphatase 130 U/L (46-116) H Troponin I 0.000 ng/mL (0.000-0.056) Total Protein 7.5 G/DL (6.4-8.2) Albumin 4.3 G/DL (3.4-5.0) Globulin 3.2 g/dL Albumin/Globulin Ratio 1.3 (1.0-2.7) Lipase 67 U/L (73-393) L Acetone Level Positive-large (NEGATIVE) Urine Color Pale yellow Urine Appearance Clear Urine pH 5 (4.5-8.0) Urine Specific [place] 1.015 (1.005-1.035) Urine Protein 2+ (NEGATIVE) H Urine Glucose (UA) 4+ (NEGATIVE) H Urine Ketones 4+ (NEGATIVE) H Urine Blood Negative (NEGATIVE) Urine Nitrite Negative (NEGATIVE) Urine Bilirubin Negative (NEGATIVE) Urine Urobilinogen Normal MG/DL (0.0-1.0) Urine Leukocyte Esterase Negative (NEGATIVE) Urine RBC 0-2 /HPF (0 - 0) H Urine WBC 0 /HPF (0 - 0) Urine Squamous Epithelial Cells None /LPF (NONE/OCC) Urine Bacteria None /HPF (NONE) Urine Opiates Screen Negative (NEGATIVE) Urine Barbiturates Screen Negative (NEGATIVE) Phencyclidine (PCP) Screen Negative (NEGATIVE) Urine Amphetamines Screen Negative (NEGATIVE) Urine Benzodiazepines Screen Negative (NEGATIVE) Urine Cocaine Screen Negative (NEGATIVE) Urine Marijuana (THC) Screen Negative (NEGATIVE) EKG Diagnostic Results Rate: tachycardiac Rhythm: NSR ST Segments: no acute changes Rhythm Strip Diag. Results EP Interpretation: yes Rhythm: no PVC's, no ectopy, other - ST Chest X-Ray Diagnostic Results Chest X-Ray Diagnostic Results : Chest X-Ray Ordered: Yes # of Views/Limited/Complete: 1 View Indication: Chest Pain Interpretation: no consolidation, no effusion, no pneumothorax Impression: No acute disease Electronically Signed by: Tone Bishop MD Last Vital Signs Date Time Temp Pulse Resp B/P (MAP) Pulse Ox O2 Delivery O2 Flow Rate FiO2 07/08/18 00:00 Room Air 07/08/18 00:00 98.0 81 10 101/58 (46) 100 Status: improved Disposition: ADMITTED INPATIENT Condition: Critical Tone Bishop MD Jul 07, 2018 14:16
--- NOTE | 2018-07-07 14:30 | NUR ---
ED Nurse Note: JOSED notified critical lab.
[2018-07-07 14:59] LABS: HEMATOCRIT 45.6 % (42.0-52.0); MEAN CORPUSCULAR VOLUME 89 FL (80-99); PLATELET COUNT 323 K/UL (150-450); RED BLOOD COUNT 5.14 M/UL (4.70-6.10); RED CELL DISTRIBUTION WIDTH 13.2 % (11.6-14.8); WHITE BLOOD COUNT 6.8 K/UL (4.8-10.8)
[2018-07-07] MEDS ORDERED: Sodium Bicarbonate 50ml Carp IV ONE (15:00)
[2018-07-07] MEDS ORDERED: Potassium Chloride 20 MEQ in LR 1000ml 1,000 ML IV SCH (15:15)
[2018-07-07 15:22] LABS: ALANINE AMINOTRANSFERASE 20 U/L (12-78); ALBUMIN 4.3 G/DL (3.4-5.0); ALBUMIN/GLOBULIN RATIO 1.3 (1.0-2.7); ALKALINE PHOSPHATASE 130 U/L (46-116); ANION GAP 31 mmol/L (5-15); ASPARTATE AMINO TRANSFERASE 8 U/L (15-37); BILIRUBIN,TOTAL 0.5 MG/DL (0.2-1.0); BLOOD UREA NITROGEN 27 mg/dL (7-18); CHLORIDE 102 MMOL/L (98-107); CREATININE 1.6 MG/DL (0.55-1.30); POTASSIUM 4.8 MMOL/L (3.5-5.1); SODIUM 140 MMOL/L (136-145)
--- NOTE | 2018-07-07 15:22 | NUR ---
ED Nurse Note: contacted pharmacy.
[2018-07-07 15:31] LABS: CARBON DIOXIDE 7 MMOL/L (21-32)
--- NOTE | 2018-07-07 15:46 | NUR ---
ED Nurse Note: BS 289, insulin drip started per ERMD order and according to the protocol, ERMD notified regarding 5 unit regular insulin ivp, per ermd order, regular insulin ivp was hold.
--- NOTE | 2018-07-07 16:05 | Diagnostic Imaging Report ---
Indication: Chest pain Comparison: 10/31/2014 A single view chest radiograph was obtained. Findings: Cardiomediastinal appearance is within normal limits for age. The lungs are clear. Pulmonary vascularity is appropriate. The diaphragmatic contour is smooth and costophrenic angles are sharp. No pleural effusions are identified. The bones are unremarkable. Impression: No acute findings
--- NOTE | 2018-07-07 16:15 | NUR ---
ED Nurse Note: called pharmacy regarding change in insulin drip order : 0.14unit/kr/hr.
--- NOTE | 2018-07-07 16:20 | NUR ---
ED Nurse Note: witness Ning
--- NOTE | 2018-07-07 16:20 | NUR ---
ED Nurse Note: insulin drip started, 8units/hr, unable to scan at this time, will call pharmacy
--- NOTE | 2018-07-07 16:35 | NUR ---
ED Nurse Note: pt report given to MOSES LEONARD from ICU and endorsed care, pt transferred to [facility] in ICU, Pt AA&ox4, gcs=15, VSS,NSR on lunchroom monitor, iv patent and intact.
--- NOTE | 2018-07-07 16:52 | NUR ---
ED Nurse Note: called ICU, unable to take pt at this time per ICU nurse statement, pt in [facility] is waiting for transfer to [facility].
[2018-07-07 16:55] LABS: APPEARANCE,URINE CLEAR; BILIRUBIN, URINE NEGATIVE (NEGATIVE); COLOR,URINE PALE YELLOW; GLUCOSE, URINE (UA) 4+ (NEGATIVE); KETONES,URINE 4+ (NEGATIVE); LEUKOCYTE ESTERASE ,URINE NEGATIVE (NEGATIVE); NITRITE,URINE NEGATIVE (NEGATIVE); PH,URINE 5 (4.5-8.0); PROTEIN,URINE 2+ (NEGATIVE); UROBILINOGEN,URINE NORMAL MG/DL (0.0-1.0)
[2018-07-07] MEDS ORDERED: D5 1/2NS w/KCl 40meq 1000ml 1,000 ML IV SCH (17:00)
--- NOTE | 2018-07-07 17:49 | History & Physical ---
History and Physical History & Physicial Dictated for Int Med-DR Baires no. [id number]. Osmin Bey MD Jul 07, 2018 17:49
[2018-07-07] MEDS ORDERED: Nitroglycerin Subl 0.4mg tab SL PRN (19:00)
[2018-07-07] MEDS ORDERED: LORazepam Inj 2mg/ml 1ml IV PRN (19:00)
[2018-07-07] MEDS ORDERED: Morphine Sulfate 4mg/ml Inj (IV USE ONLY) IVP PRN (19:00)
[2018-07-07] MEDS ORDERED: Insulin Human Regular 100units/ml 3ml IV PRN ×2 (19:00)
[2018-07-07] MEDS ORDERED: Miralax 17gm pkt ORAL PRN (19:00)
[2018-07-07] MEDS ORDERED: Albuterol/Ipratropium 3ml neb HHN PRN (19:00)
--- NOTE | 2018-07-07 19:00 | NUR ---
NURSE NOTES: Received the report from MOSES Mathew. Pt's resting in bed, watching TV, AOx4, verbal responsive, denies any other concerns/complaints at this time. Stated feeling well. SR on teletypesetter monitor. VS stable. NPO currently. Admitted from ER to ICU due to DKA, currently on Insulin drip, at 0.5units/hr, and D5 1/2 NS with 40meqKCl at 150ml/hr via Right AC 20G and Left AC 20G. Pt void using urinal. No skin issue. Bed in low and locked position, call light within reach. Will continue to monitor.
--- NOTE | 2018-07-07 19:30 | NUR ---
NURSE NOTES: Pt's resting in bed, AOx4, VS stable, per Dr Raygoza, pt's current on Insulin drip under Algorithm3, and NS running at 150ml/hr. Will continue to monitor.
[2018-07-07 19:32] LABS: ANION GAP 16 mmol/L (5-15); BLOOD UREA NITROGEN 20 mg/dL (7-18); CALCIUM 7.7 MG/DL (8.5-10.1); CARBON DIOXIDE 14 MMOL/L (21-32); CHLORIDE 103 MMOL/L (98-107); CREATININE 0.9 MG/DL (0.55-1.30); POTASSIUM 3.3 MMOL/L (3.5-5.1); SODIUM 133 MMOL/L (136-145)
--- NOTE | 2018-07-07 20:00 | History and Physical Report ---
DATE OF ADMISSION: 07/07/2018 CHIEF COMPLAINT: The patient is a 38-year-old diabetic male, who presents with a chief complaint of chest pain and elevated blood sugar. HISTORY OF PRESENT ILLNESS: The patient awoke this morning. The patient gave himself his usual dose of insulin. The patient then found out his blood sugar was greater than 500. The patient also became short of breath. The patient had chest pain. The patient presented to [place] emergency room. The patient was admitted for hyperglycemia, chest pain, and diabetic ketoacidosis. PAST MEDICAL HISTORY: Significant for, 1. Diabetes type 1. 2. History of appendicitis, however, the patient has not undergone appendectomy. PAST SURGICAL HISTORY: The patient denies. CURRENT MEDICATIONS: 1. Amitriptyline 25 mg one tab p.o. at bedtime. 2. Gabapentin 300 mg one tab p.o. 3 times daily. 3. NovoLog sliding scale. 4. Levemir 12 units subcutaneously twice daily. 5. Metformin 1000 mg p.o. twice daily. 6. Protonix 40 mg p.o. daily. 7. Potassium chloride 40 mEq p.o. daily. ALLERGIES: No known drug allergies. SOCIAL HISTORY: The patient is and lives with his . The patient denies tobacco or alcohol use. REVIEW OF SYSTEMS: CONSTITUTIONAL: The patient denies weight loss or weight gain. The patient denies fevers or chills. HEENT: The patient denies ear or throat pain. The patient denies headache. CARDIOVASCULAR: The patient complains of chest pain as above. The patient denies palpitations. ABDOMEN: The patient denies nausea, vomiting, diarrhea, or constipation. GENITOURINARY: The patient denies dysuria or increased frequency of urination. NEUROMUSCULAR: The patient denies seizures or generalized weakness. PHYSICAL EXAMINATION: VITAL SIGNS: Temperature 97.9, respirations 32, pulse 115, and blood pressure 138/65. GENERAL: The patient is a thin-appearing male, who is in moderate respiratory distress. HEENT: Eyes, pupils are equal and responsive to light and accommodation. Extraocular movements are intact. NECK: Supple without lymphadenopathy. CHEST: Lungs are clear to auscultation bilaterally without wheezes or rales. CARDIOVASCULAR: Tachycardic, regular rhythm. S1, S2 are normal without murmurs, rubs, or gallops. ABDOMEN: Soft, nontender, and nondistended. Positive bowel sounds. No evidence of hepatosplenomegaly. Currently, no rebound or guarding noted. EXTREMITIES: Negative for clubbing, cyanosis, or edema. RECTAL/GENITAL: Refused. NEUROLOGIC: Cranial nerves II through XII are grossly intact without focal deficits. Motor strength is 5/5 bilaterally. Deep tendon reflexes are 2+ plantar. LABORATORY STUDIES: WBC 6.8, hemoglobin 15.0, hematocrit 45.6, and platelets 222,000. Sodium 140, potassium 4.8, chloride 102, CO2 27, BUN 27, creatinine 1.6, and glucose 547. Troponin 0.0. Urinalysis showed 2+ protein, 4+ glucose, and 4+ ketones. Urine toxicology was reported as negative. Blood gas is pending. ASSESSMENT: This is a 38-year-old male. 1. Hyperglycemia. 2. Uncontrolled diabetes type 1. 3. Diabetic ketoacidosis. 4. Tachycardia. TREATMENT: Uncontrolled diabetes/diabetic ketoacidosis. The patient has been started empirically on NovoLog sliding scale. An Endocrinology consultation has been obtained with Dr. Smiley. We will follow recommendations of Endocrinology. The patient is currently admitted to the intensive care unit. Osmin Bey M.D. DR: JOHN JOB#: [id number] CC:
[2018-07-07] MEDS: Heparin 5000 units/ml inj SUBQ SCH (20:54)
[2018-07-07] MEDS: Insulin Rate Change 1 Each MISC PRN ×2 (20:58→22:12)
--- NOTE | 2018-07-07 22:00 | NUR ---
NURSE NOTES: Pt's resting in bed, asleep with eyes closed. VS stable. Will continue to monitor.
[2018-07-08] VITALS (18 sets, daily range): BP systolic 88–110; BP diastolic 49–76
--- NOTE | 2018-07-08 | NUR ---
NURSE NOTES: Pt's resting in bed, asleep with eyes closed. VS stable. Will continue to monitor.
[2018-07-08] MEDS ORDERED: Insulin Human Regular 100units/ml 3ml IV PRN ×2 (01:15)
--- NOTE | 2018-07-08 02:00 | NUR ---
NURSE NOTES: Pt's resting in bed, asleep with eyes closed. VS stable. Will continue to monitor.
[2018-07-08] MEDS: Insulin Rate Change 1 Each MISC PRN ×2 (02:21→04:27)
--- NOTE | 2018-07-08 04:00 | NUR ---
NURSE NOTES: Pt's resting in bed, asleep, eyes closed, in no acute distress. VS stable. Will continue to monitor.
--- NOTE | 2018-07-08 06:00 | NUR ---
NURSE NOTES: Pt's resting in bed, asleep, in no acute distress. VS stable Will continue to monitor.
--- NOTE | 2018-07-08 07:16 | NUR ---
HAND-OFF: Report given to MOSES Mathew.
--- NOTE | 2018-07-08 07:18 | NUR ---
NURSE NOTES: Received patient a&o x4. night monitor showing SR. Saturating 100% on room air. Lung sounds clear. Non tender, flat, soft abdomen. Hypoactive bowel sounds on all 4 quadrants. Patient remains NPO at this time. NO bowel movement noted. Urinal at bedside patient voids independently. No skin issues. R ac 20 L ac 18. Currently on NS at 150 cc/hr and insulin drip at 0.5 U/kg/hr alg 2. Potassium and sodium lab values reported to MD. No new orders yet at this time. Will continue to monitor patient.Call light within reach, bed on lowest position, hob elevated, bed alarm on for safety.
[2018-07-08 07:50] LABS: INR 1.1 (0.9-1.1)
[2018-07-08 07:53] LABS: ANION GAP 11 mmol/L (5-15); BLOOD UREA NITROGEN 13 mg/dL (7-18); CALCIUM 7.6 MG/DL (8.5-10.1); CARBON DIOXIDE 20 MMOL/L (21-32); CHLORIDE 106 MMOL/L (98-107); CREATININE 0.6 MG/DL (0.55-1.30); SODIUM 137 MMOL/L (136-145)
[2018-07-08 08:03] LABS: ALANINE AMINOTRANSFERASE 14 U/L (12-78); ALBUMIN 2.5 G/DL (3.4-5.0); ALKALINE PHOSPHATASE 74 U/L (46-116); ASPARTATE AMINO TRANSFERASE 8 U/L (15-37); BILIRUBIN,DIRECT 0.1 MG/DL (0.0-0.3); BILIRUBIN,TOTAL 0.4 MG/DL (0.2-1.0); PHOSPHORUS 1.5 MG/DL (2.5-4.9)
[2018-07-08 08:08] LABS: POTASSIUM 2.5 MMOL/L (3.5-5.1)
[2018-07-08] MEDS: Heparin 5000 units/ml inj SUBQ SCH ×2 (08:30→21:08)
--- NOTE | 2018-07-08 08:31 | NUR ---
NURSE NOTES: Patient stated that he is really tired and wants to sleep. He said he is refusing 9 oclock medications and wants to get rest since "they poked him all night every hour for blood sugar checks." Heparin and gabapentin for 9 am will be non admin due to patient refusal. Will continue to monitor patient.
--- NOTE | 2018-07-08 10:00 | NUR ---
NURSE NOTES: Patient remains asleep, arousable to name. States that still feels tired and wants to sleep. KCL first bag given. Insulin drip DCed per MD order. Patient now on sliding scale. Will continue plan of care.
--- NOTE | 2018-07-08 10:18 | Pulmonolgy Critical Care Note ---
Critical Care - Asmt/Plan Problems: (1) DKA (diabetic ketoacidoses) Respiratory: monitor respiratory rate, adjust FIO2 Cardiac: continue to monitor HR/BP Renal: decrease IV fluid Infectious Disease: check cultures, continue antibiotics Endocrine: monitor blood sugar, d/c insulin drip, continue sliding scale insulin, other - BS better, AG resolved, DC insulin drip Neurologic: PRN Ativan Prophylaxis: Heparin Disposition: transfer to - med/surg. DC in am Notes Reviewed: release specialist Discussed with: nurses, consultants, case monitorbrood station manager - Objective Last 24 Hour Vital Signs Date Time Temp Pulse Resp B/P (MAP) Pulse Ox O2 Delivery O2 Flow Rate FiO2 07/08/18 08:00 77 07/08/18 08:00 Room Air 07/08/18 08:00 98.5 75 15 95/60 (72) 100 07/08/18 07:50 95 20 07/08/18 07:00 77 14 98/62 (74) 100 07/08/18 06:00 72 15 94/61 (72) 100 07/08/18 05:00 80 15 91/55 (67) 100 07/08/18 04:00 98.2 80 14 92/57 (69) 100 07/08/18 04:00 Room Air 07/08/18 04:00 74 07/08/18 03:00 75 11 91/49 (63) 100 07/08/18 02:00 75 11 88/51 (63) 100 07/08/18 01:00 75 11 107/61 (76) 100 07/08/18 00:00 Room Air 07/08/18 00:00 98.0 81 10 101/58 (72) 100 07/07/18 23:00 80 10 100/57 (71) 100 07/07/18 22:00 79 10 104/58 (73) 100 07/07/18 21:00 75 9 128/70 (89) 100 07/07/18 20:00 79 10 109/76 (87) 100 07/07/18 20:00 Room Air 07/07/18 20:00 78 07/07/18 19:29 Room Air 07/07/18 19:00 98.0 79 10 129/76 (93) 100 07/07/18 17:02 97.2 102 16 134/76 100 Room Air 07/07/18 16:35 97.2 89 16 125/64 100 Room Air 07/07/18 16:02 97.1 109 18 156/96 100 Room Air 07/07/18 15:02 97.0 117 24 130/97 100 Room Air 07/07/18 14:02 110 28 07/07/18 14:02 97.0 110 28 120/94 100 Room Air 07/07/18 13:58 97.9 115 32 138/65 92 Room Air Status: awake Condition: improving Neck: full ROM Heart: HR/BP stable Abdomen: soft, active bowel sounds Accucheck: 104 Critical Care - Subjective ROS Limited/Unobtainable: No ICU Day: feeling better Fluids: NS 150 Drips: Insulin I&O: Intake and Output 07/07/18 07/08/18 18:59 06:59 Intake Total 1679.57 ml Output Total 1000 ml Balance 679.57 ml Intake IV Total 1679.57 ml Output Urine Total 1000 ml # Voids 2 1 Labs: Laboratory Tests Test 07/07/18 14:34 07/07/18 14:35 07/07/18 16:17 07/07/18 18:35 Venous Blood pH Pending Venous Blood Partial Pressure CO2 Pending Venous Blood Partial Pressure O2 Pending Venous Blood HCO3 Pending Venous Blood Total Carbon Dioxide Pending Venous Bld O2 Saturation (Measured) 56.0 Venous Blood Oxygen Saturation Pending Venous Blood Base Excess Pending Methemoglobin 0.4 Sodium (Blood Gas) Pending White Blood Count 6.8 K/UL (4.8-10.8) Red Blood Count 5.14 M/UL (4.70-6.10) Hemoglobin 15.0 G/DL (14.2-18.0) Hematocrit 45.6 % (42.0-52.0) Mean Corpuscular Volume 89 FL (80-99) Mean Corpuscular Hemoglobin 29.2 PG (27.0-31.0) Mean Corpuscular Hemoglobin Concent 32.9 G/DL (32.0-36.0) Red Cell Distribution Width 13.2 % (11.6-14.8) Platelet Count 323 K/UL (150-450) Mean Platelet Volume 6.1 FL (6.5-10.1) L Neutrophils (%) (Auto) % (45.0-75.0) Lymphocytes (%) (Auto) % (20.0-45.0) Monocytes (%) (Auto) % (1.0-10.0) Eosinophils (%) (Auto) % (0.0-3.0) Basophils (%) (Auto) % (0.0-2.0) Differential Total Cells Counted 100 Neutrophils % (Manual) 83 % (45-75) H Lymphocytes % (Manual) 7 % (20-45) L Monocytes % (Manual) 8 % (1-10) Eosinophils % (Manual) 0 % (0-3) Basophils % (Manual) 0 % (0-2) Band Neutrophils 2 % (0-8) Platelet Estimate Adequate Platelet Morphology Normal Red Blood Cell Morphology Normal Sodium Level 140 MMOL/L (136-145) 133 MMOL/L (136-145) L Potassium Level 4.8 MMOL/L (3.5-5.1) 3.3 MMOL/L (3.5-5.1) L Chloride Level 102 MMOL/L (98-107) 103 MMOL/L (98-107) Carbon Dioxide Level 7 MMOL/L (21-32) *L 14 MMOL/L (21-32) L Anion Gap 31 mmol/L (5-15) H 16 mmol/L (5-15) H Blood Urea Nitrogen 27 mg/dL (7-18) H 20 mg/dL (7-18) H Creatinine 1.6 MG/DL (0.55-1.30) H 0.9 MG/DL (0.55-1.30) Estimat Glomerular Filtration Rate 48.4 mL/min (>60) > 60 mL/min (>60) Glucose Level 547 MG/DL (74-106) *H 149 MG/DL (74-106) #H Calcium Level 9.0 MG/DL (8.5-10.1) 7.7 MG/DL (8.5-10.1) L Magnesium Level 2.6 MG/DL (1.8-2.4) H Total Bilirubin 0.5 MG/DL (0.2-1.0) Aspartate Amino Transf (AST/SGOT) 8 U/L (15-37) L Alanine Aminotransferase (ALT/SGPT) 20 U/L (12-78) Alkaline Phosphatase 130 U/L (46-116) H Troponin I 0.000 ng/mL (0.000-0.056) Total Protein 7.5 G/DL (6.4-8.2) Albumin 4.3 G/DL (3.4-5.0) Globulin 3.2 g/dL Albumin/Globulin Ratio 1.3 (1.0-2.7) Lipase 67 U/L (73-393) L Acetone Level Positive-large (NEGATIVE) Urine Color Pale yellow Urine Appearance Clear Urine pH 5 (4.5-8.0) Urine Specific [place] 1.015 (1.005-1.035) Urine Protein 2+ (NEGATIVE) H Urine Glucose (UA) 4+ (NEGATIVE) H Urine Ketones 4+ (NEGATIVE) H Urine Blood Negative (NEGATIVE) Urine Nitrite Negative (NEGATIVE) Urine Bilirubin Negative (NEGATIVE) Urine Urobilinogen Normal MG/DL (0.0-1.0) Urine Leukocyte Esterase Negative (NEGATIVE) Urine RBC 0-2 /HPF (0 - 0) H Urine WBC 0 /HPF (0 - 0) Urine Squamous Epithelial Cells None /LPF (NONE/OCC) Urine Bacteria None /HPF (NONE) Urine Opiates Screen Negative (NEGATIVE) Urine Barbiturates Screen Negative (NEGATIVE) Phencyclidine (PCP) Screen Negative (NEGATIVE) Urine Amphetamines Screen Negative (NEGATIVE) Urine Benzodiazepines Screen Negative (NEGATIVE) Urine Cocaine Screen Negative (NEGATIVE) Urine Marijuana (THC) Screen Negative (NEGATIVE) Test 07/08/18 06:33 Prothrombin Time 11.6 SEC (9.30-11.50) H Prothromb Time International Ratio 1.1 (0.9-1.1) Activated Partial Thromboplast Time 27 SEC (23-33) Sodium Level 137 MMOL/L (136-145) Potassium Level 2.5 MMOL/L (3.5-5.1) *L Chloride Level 106 MMOL/L (98-107) Carbon Dioxide Level 20 MMOL/L (21-32) L Anion Gap 11 mmol/L (5-15) Blood Urea Nitrogen 13 mg/dL (7-18) Creatinine 0.6 MG/DL (0.55-1.30) Estimat Glomerular Filtration Rate > 60 mL/min (>60) Glucose Level 95 MG/DL (74-106) Calcium Level 7.6 MG/DL (8.5-10.1) L Phosphorus Level 1.5 MG/DL (2.5-4.9) L Magnesium Level 1.7 MG/DL (1.8-2.4) L Total Bilirubin 0.4 MG/DL (0.2-1.0) Direct Bilirubin 0.1 MG/DL (0.0-0.3) Aspartate Amino Transf (AST/SGOT) 8 U/L (15-37) L Alanine Aminotransferase (ALT/SGPT) 14 U/L (12-78) Alkaline Phosphatase 74 U/L (46-116) Total Protein 4.6 G/DL (6.4-8.2) #L Albumin 2.5 G/DL (3.4-5.0) L Gemini Raygoza MD Jul 08, 2018 10:18
[2018-07-08] MEDS ORDERED: NovoLOG Insulin Flexpen SUBQ SCH (11:30)
--- NOTE | 2018-07-08 12:00 | NUR ---
NURSE NOTES: Patient turned and repositioned. No new orders at this time. Patient resting. Calm cooperative. Will continue plan of care.
--- NOTE | 2018-07-08 12:39 | Consultation ---
Consult Note Consult Note asked to eval for electrolyte im balance and fluid management Patient presents with weakness and chest pain. He is insulin dependent and took his insulin this morning. EMS had glucose > [address] Patient short of breath, dehydrated and weak. Denies vomiting or fever. Chest pain is somewhat pleuritic, R sided, rated 8/10, aching. Polies. Thirsty. Weak generalized. No rashes. H/O DKA in the past. H/O pancreatitis, denies abdominal pain. Some constipation. Depression. Last admitted July 2017. Past Medical History: No History, Except For Hx Diabetes: Yes Hx Gastrointestinal Problems: No Hx Neurological Problems: No rxamined data reviewed Assessment/Plan IDDM DKA Low Phos and Mag and K IV supplement BS control monitor lytes and chemistries Ilya Escalante MD Jul 08, 2018 12:39
--- NOTE | 2018-07-08 12:56 | NUR ---
CASE MANAGEMENT: REVIEW 38/M BIBA FROM HOME CC: ABNORMAL LABS SI: DIABETIC KETOACIDOSIS T 97.0 HR 117 RR 32 BP 138/65 SAT 92% ROOM AIR NA 133 K 3.3 GLUCOSE 547 CO2 7 IS: NOVOLIN R IV X1 KCl LACTATED RINGER'S IVF BOLUS X1 SODIUM BICARB IV X1 INTERQUAL CRITERIA MET: PATIENT ADMITTED TO ICU 07/07/2018 DCP: PATIENT IS FROM HOME CASE MANAGEMENT: REVIEW SI: DIABETIC KETOACIDOSIS T 98.7 HR 75 RR 15 BP 88/51 SAT 100% ROOM AIR K 2.5 GLUCOSE 149 IS: K-DUR PO BID K PHOS IVF IV X1 NOVOLOG SQ AC/HS KCl 10mEq IVF@100ML/HR ICU STATUS DCP: PATIENT IS FROM HOME
--- NOTE | 2018-07-08 14:00 | NUR ---
NURSE NOTES: Patient turned and repositioned. Awaiting for bed assignment to transfer patient to [facility]. Will continue plan of care.
[2018-07-08] MEDS ORDERED: Potassium Phosphate 30 MM in NS 275 ML IV ONE (14:30)
--- NOTE | 2018-07-08 15:30 | NUR ---
TRANSFER TO FLOOR: Patient transferred to Med-Surg, per hospital bed. Report given to MOSES Chopra using sbar. Belongings and medications given to RN. Family and or S/O informed of transfer.
--- NOTE | 2018-07-08 15:36 | Cardiology Report ---
APPROVED REPORT EXAM: Two-dimensional and M-mode echocardiogram with Doppler and color Doppler. INDICATION Congestive Heart Failure M-Mode DIMENSIONS IVSd0.7 (0.7-1.1cm)Left Atrium (MM)2.5 (1.6-4.0cm) LVDd4.7 (3.5-5.6cm)Aortic Root3.4 (2.0-3.7cm) PWd0.7 (0.7-1.1cm)Aortic Cusp Exc.2.0 (1.5-2.0cm) LVDs3.0 (2.5-4.0cm) PWs0.9 cm Normal left ventricular chamber size, systolic function and wall motion. Left ventricular ejection fraction estimated to be 60 %. No evidence of left ventricular hypertrophy. No evidence of pericardial effusion. All other cardiac chamber sizes are within normal limits. Normal aortic valve structure with adaquate cusp excursion. Thickened mitral valve leaflets with normal excursion. Mild mitral annulus and aortic root calcification. Pulmonic valve not well visualized. Normal tricuspid valve structure. IVC is normal in size with physiological collapse. A color flow and spectral Doppler study was performed and revealed: No aortic insufficiency. No mitral regurgitation. Normal left ventricular diastolic function. Trace tricuspid regurgitation. Tricuspid systolic velocities suggests peak right ventricular systolic pressure of 15 mmHg. No pulmonic regurgitation present.
--- NOTE | 2018-07-08 15:59 | Cardiology Report ---
APPROVED REPORT EKG Measurement Heart [id number] N[address] and T wave abnormality Abnormal ECG
[2018-07-08] MEDS ORDERED: Albuterol/Ipratropium 3ml neb HHN PRN (16:00)
--- NOTE | 2018-07-08 16:20 | NUR ---
NURSE NOTES: received patient from ICU awake, verbally responsive. with no sob. IV line to Rt AC intact. Oriented to room and call light. All needs attended. Belongings with patient.
[2018-07-08] MEDS: NovoLOG Insulin Flexpen SUBQ SCH ×2 (16:27→21:09)
--- NOTE | 2018-07-08 16:51 | Internal Med Progress Note ---
Subjective Physician Name Jai Baires Attending Physician Jai Baires MD Current Medications Medications (Trade) Dose Ordered Sig/Bayron Route PRN Reason Start Time Stop Time Status Last Admin Dose Admin Acetaminophen (Tylenol) 650 mg Q4H PRN ORAL T>100.5 07/08/18 16:00 08/06/18 15:59 Albuterol/ Ipratropium (Albuterol/ Ipratropium) 3 ml Q4H PRN HHN Shortness of Breath 07/08/18 16:00 07/12/18 15:59 Amitriptyline HCl (Elavil) 25 mg BEDTIME ORAL 07/08/18 21:00 08/06/18 20:59 Dextrose (Dextrose 50%) 25 ml Q30M PRN IV Hypoglycemia 07/08/18 15:30 08/07/18 10:27 Dextrose (Dextrose 50%) 50 ml Q30M PRN IV hypoglycemia 07/08/18 15:30 08/07/18 10:29 Gabapentin (Neurontin) 300 mg THREE TIMES A DAY ORAL 07/08/18 18:00 08/07/18 08:59 Heparin Sodium (Porcine) (Heparin 5000 units/ml) 5,000 units EVERY 12 HOURS SUBQ 07/08/18 21:00 08/06/18 20:59 Insulin Aspart (NovoLOG) BEFORE MEALS AND HS SUBQ 07/08/18 16:30 08/07/18 16:29 07/08/18 16:27 Ondansetron HCl (Zofran) 4 mg Q6H PRN IVP Nausea & Vomiting 07/08/18 16:00 08/06/18 15:59 Potassium Phosphate 30 mm/ Sodium Chloride 285 ml @ 47.5 mls/hr ONCE ONCE IV 07/08/18 14:30 07/08/18 20:29 07/08/18 14:30 Potassium Chloride (K-Dur) 40 meq TWICE A DAY ORAL 07/09/18 09:00 07/10/18 08:59 Allergies: Coded Allergies: No Known Allergies (Unverified , 10/31/14) Subjective awake, alert, responsive, NAD Objective Last Vital Signs Date Time Temp Pulse Resp B/P (MAP) Pulse Ox O2 Delivery O2 Flow Rate FiO2 07/08/18 16:00 70 95/62 (73) 07/08/18 15:00 15 100 07/08/18 12:00 Room Air 07/08/18 12:00 98.7 Laboratory Tests Test 07/07/18 18:35 07/08/18 06:33 07/08/18 16:10 Sodium Level 133 MMOL/L (136-145) L 137 MMOL/L (136-145) Pending Potassium Level 3.3 MMOL/L (3.5-5.1) L 2.5 MMOL/L (3.5-5.1) *L Pending Chloride Level 103 MMOL/L (98-107) 106 MMOL/L (98-107) Pending Carbon Dioxide Level 14 MMOL/L (21-32) L 20 MMOL/L (21-32) L Pending Anion Gap 16 mmol/L (5-15) H 11 mmol/L (5-15) Blood Urea Nitrogen 20 mg/dL (7-18) H 13 mg/dL (7-18) Pending Creatinine 0.9 MG/DL (0.55-1.30) 0.6 MG/DL (0.55-1.30) Pending Estimat Glomerular Filtration Rate > 60 mL/min (>60) > 60 mL/min (>60) Pending Glucose Level 149 MG/DL (74-106) #H 95 MG/DL (74-106) Pending Calcium Level 7.7 MG/DL (8.5-10.1) L 7.6 MG/DL (8.5-10.1) L Pending Prothrombin Time 11.6 SEC (9.30-11.50) H Prothromb Time International Ratio 1.1 (0.9-1.1) Activated Partial Thromboplast Time 27 SEC (23-33) Hemoglobin A1c 13.5 % (4.3-6.0) H Phosphorus Level 1.5 MG/DL (2.5-4.9) L Magnesium Level 1.7 MG/DL (1.8-2.4) L Total Bilirubin 0.4 MG/DL (0.2-1.0) Pending Direct Bilirubin 0.1 MG/DL (0.0-0.3) Aspartate Amino Transf (AST/SGOT) 8 U/L (15-37) L Pending Alanine Aminotransferase (ALT/SGPT) 14 U/L (12-78) Pending Alkaline Phosphatase 74 U/L (46-116) Pending Total Protein 4.6 G/DL (6.4-8.2) #L Pending Albumin 2.5 G/DL (3.4-5.0) L Pending Globulin Pending Intake and Output 07/07/18 07/08/18 18:59 06:59 Intake Total 1679.57 ml Output Total 1000 ml Balance 679.57 ml Intake IV Total 1679.57 ml Output Urine Total 1000 ml # Voids 2 1 Objective General: No acute distress, awake and alert HEENT: NCAT, sclera anicteric, PERRL, EOMI. Neck: Supple, no significant jugular venous distention, Lungs: Good inspiratory effort, no accessory muscle use, clear to auscultation bilaterally, no Wheeze or Rales. Heart: Regular rate and rhythm, normal S1/S2, no murmurs/gallops Abdomen: soft, nontender, nondistended. Normoactive bowel sounds. / Rectal: Refused and deferred. Extremities: No Cyanosis , clubbing or edema. Neuro: A&O x 3, Able to move all extremities Skin: warm, no rashes or lesions Psych: Normal mood and affect Assessment/Plan Assessment/Plan 1. Hyperglycemia. 2. Uncontrolled diabetes type 1. 3. Diabetic ketoacidosis. 4. Tachycardia. Plan: IVF Monitor BS DC home in AM. Jai Baires MD Jul 08, 2018 16:51
[2018-07-08 18:26] LABS: ALANINE AMINOTRANSFERASE 16 U/L (12-78); ALBUMIN 2.6 G/DL (3.4-5.0); ALBUMIN/GLOBULIN RATIO 1.3 (1.0-2.7); ALKALINE PHOSPHATASE 81 U/L (46-116); ANION GAP 11 mmol/L (5-15); ASPARTATE AMINO TRANSFERASE 12 U/L (15-37); BILIRUBIN,TOTAL 0.4 MG/DL (0.2-1.0); BLOOD UREA NITROGEN 12 mg/dL (7-18); CALCIUM 7.8 MG/DL (8.5-10.1); CARBON DIOXIDE 21 MMOL/L (21-32); CHLORIDE 105 MMOL/L (98-107); CREATININE 0.6 MG/DL (0.55-1.30); POTASSIUM 3.3 MMOL/L (3.5-5.1); SODIUM 137 MMOL/L (136-145)
--- NOTE | 2018-07-08 19:20 | NUR ---
NURSE NOTES: pt awake alert, no distress. no sob. call light within reach. relayed to dr Raygoza re k level in the evening. HAND-OFF: Report given to CHEMA LOPES. RN AWARE TO FOLLOW UP RE K LEVEL
--- NOTE | 2018-07-08 20:00 | NUR ---
NURSE NOTES: Pt received awake alert with IV site running potassium phosphate, bed in lowest position, no signs of distress and no c/o pain at the moment. Able to make needs known, call light within reach.
--- NOTE | 2018-07-08 21:00 | NUR ---
NURSE NOTES: Did not administer blood pressure medication, patient lying still in bed BP 110/76.
[2018-07-09] VITALS: BP 105/59
[2018-07-09 04:00] VITALS: BP 102/70
[2018-07-09] MEDS: NovoLOG Insulin Flexpen SUBQ SCH ×3 (06:20→17:06)
--- NOTE | 2018-07-09 07:37 | NUR ---
HAND-OFF: Report given to MOSES Kimball.
[2018-07-09 08:00] VITALS: BP 92/64
[2018-07-09 08:12] LABS: HEMATOCRIT 32.5 % (42.0-52.0); HEMOGLOBIN 11.3 G/DL (14.2-18.0); MEAN CORPUSCULAR VOLUME 85 FL (80-99); PLATELET COUNT 173 K/UL (150-450); RED BLOOD COUNT 3.84 M/UL (4.70-6.10); RED CELL DISTRIBUTION WIDTH 12.6 % (11.6-14.8)
--- NOTE | 2018-07-09 08:31 | NUR ---
NURSE NOTES: Received pt from MOSES SANCHEZ. Pt is alert and orient x4. No SOB or acute respiratory distress noted. pt has iv access LAC 20G and RAC 20G SL. all needs attended, bed is locked and is in the lowest position. call light within easy reach. will continue to monitor.
[2018-07-09 08:40] LABS: ALANINE AMINOTRANSFERASE 15 U/L (12-78); ALBUMIN 2.6 G/DL (3.4-5.0); ALBUMIN/GLOBULIN RATIO 1.1 (1.0-2.7); ALKALINE PHOSPHATASE 76 U/L (46-116); ANION GAP 9 mmol/L (5-15); ASPARTATE AMINO TRANSFERASE 12 U/L (15-37); BILIRUBIN,TOTAL 0.4 MG/DL (0.2-1.0); BLOOD UREA NITROGEN 8 mg/dL (7-18); CALCIUM 8.1 MG/DL (8.5-10.1); CARBON DIOXIDE 24 MMOL/L (21-32); CHLORIDE 104 MMOL/L (98-107); CHOLESTEROL 177 MG/DL (< 200); CREATININE 0.6 MG/DL (0.55-1.30); HDL CHOLESTEROL 58 MG/DL (40-60); PHOSPHORUS 2.1 MG/DL (2.5-4.9); POTASSIUM 3.1 MMOL/L (3.5-5.1); SODIUM 137 MMOL/L (136-145); TRIGLYCERIDES 106 MG/DL (30-150)
[2018-07-09] MEDS: Heparin 5000 units/ml inj SUBQ SCH (09:35)
[2018-07-09] MEDS ORDERED: Potassium Phosphate 30 MM in NS 275 ML IV SCH (10:00)
--- NOTE | 2018-07-09 10:58 | Nephrology Progress Note ---
Assessment/Plan Problem List: (1) DKA (diabetic ketoacidoses) (2) Electrolyte imbalance Assessment IDDM DKA Low Phos and Mag and K Plan IV supplement BS control monitor lytes and chemistries Subjective ROS Limited/Unobtainable: No Objective Objective Last 24 Hour Vital Signs Date Time Temp Pulse Resp B/P (MAP) Pulse Ox O2 Delivery O2 Flow Rate FiO2 07/09/18 08:00 98.9 83 18 92/64 (73) 99 07/09/18 04:00 99.4 77 18 102/70 (81) 99 07/09/18 04:00 Room Air 07/09/18 00:00 99.1 78 18 105/59 (74) 98 07/09/18 00:00 Room Air 07/08/18 21:00 Room Air 07/08/18 20:00 99.0 83 18 110/76 (87) 99 07/08/18 19:43 73 18 Room Air 21 07/08/18 16:55 Room Air 07/08/18 16:00 70 95/62 (73) 07/08/18 15:00 70 15 98/62 (74) 100 07/08/18 14:00 75 14 95/60 (72) 100 07/08/18 13:00 77 15 90/58 (69) 100 07/08/18 12:00 Room Air 07/08/18 12:00 98.7 78 15 98/64 (75) 100 07/08/18 12:00 74 07/08/18 11:00 77 15 95/63 (74) 100 Intake and Output 07/08/18 07/09/18 19:00 07:00 Intake Total 540 ml 120 ml Output Total 600 ml Balance -60 ml 120 ml Intake Oral 240 ml 120 ml IV Total 300 ml Output Urine Total 600 ml # Voids 2 Laboratory Tests 07/08/18 18:00: Sodium Level 137, Potassium Level 3.3L, Chloride Level 105, Carbon Dioxide Level 21, Anion Gap 11, Blood Urea Nitrogen 12, Creatinine 0.6, Estimat Glomerular Filtration Rate > 60, Glucose Level 200#H, Calcium Level 7.8L, Total Bilirubin 0.4, Aspartate Amino Transf (AST/SGOT) 12L, Alanine Aminotransferase ( ALT/SGPT) 16, Alkaline Phosphatase 81, Total Protein 4.6L, Albumin 2.6L, Globulin 2.0, Albumin/Globulin Ratio 1.3 07/09/18 07:15: Sodium Level 137, Potassium Level 3.1L, Chloride Level 104, Carbon Dioxide Level 24, Anion Gap 9, Blood Urea Nitrogen 8, Creatinine 0.6, Estimat Glomerular Filtration Rate > 60, Glucose Level 192H, Calcium Level 8.1L, Total Bilirubin 0.4, Aspartate Amino Transf (AST/SGOT) 12L, Alanine Aminotransferase ( ALT/SGPT) 15, Alkaline Phosphatase 76, Total Protein 4.9L, Albumin 2.6L, Globulin 2.3, Albumin/Globulin Ratio 1.1, White Blood Count 3.0L, Red Blood Count 3.84L, Hemoglobin 11.3L, Hematocrit 32.5L, Mean Corpuscular Volume 85, Mean Corpuscular Hemoglobin 29.3, Mean Corpuscular Hemoglobin Concent 34.6, Red Cell Distribution Width 12.6, Platelet Count 173, Mean Platelet Volume 6.5, Neutrophils (%) (Auto) , Lymphocytes (%) (Auto) , Monocytes (%) (Auto) , Eosinophils (%) (Auto) , Basophils (%) (Auto) , Neutrophils % (Manual) [Pending] , Lymphocytes % (Manual) [Pending], Platelet Estimate [Pending], Platelet Morphology [Pending], Uric Acid 2.5L, Phosphorus Level 2.1L, Magnesium Level 2.1 , Triglycerides Level 106, Cholesterol Level 177, LDL Cholesterol 101H, HDL Cholesterol 58, Cholesterol/HDL Ratio 3.1L, Thyroid Stimulating Hormone (TSH) 4.208H, Cortisol AM Sample [Pending] Height (Feet): 5 Height (Inches): 8.00 Weight (Pounds): 119 General Appearance: no apparent distress Objective no change Ilya Escalante MD Jul 09, 2018 10:58
[2018-07-09 12:00] VITALS: BP 101/70
--- NOTE | 2018-07-09 12:59 | NUR ---
CASE MANAGEMENT: REVIEW 07/09/2018 SI: DIABETIC KETOACIDOSIS T 97.6 HR 88 RR 18 B/P 101/70 SATS 98% ON RA WBC 3 K 3.1 GLU 192 URIC ACID 2.5 CA 8.1 PHOS 2.1 AST 12 IS: HEPARIN SUBQ Q12H ELAVIL PO QHS K DUR PO QD INSULIN ASPART SUBQ AC/HS K PHOS IV X1 GABAPENTIN PO TID TELE STATUS DCP: PATIENT IS FROM HOME
[2018-07-09] MEDS ORDERED: Potassium Phosphate 30 MM in NS 275 ML IV ONE (14:30)
[2018-07-09 16:00] VITALS: BP 106/74
--- NOTE | 2018-07-09 17:29 | Internal Med Progress Note ---
Subjective Date of Service: Jul 09, 2018 Physician Name Osmin Bey Attending Physician Jai Baires MD Current Medications Medications (Trade) Dose Ordered Sig/Bayron Route PRN Reason Start Time Stop Time Status Last Admin Dose Admin Acetaminophen (Tylenol) 650 mg Q4H PRN ORAL T>100.5 07/08/18 16:00 08/06/18 15:59 Albuterol/ Ipratropium (Albuterol/ Ipratropium) 3 ml Q4H PRN HHN Shortness of Breath 07/08/18 16:00 07/12/18 15:59 Amitriptyline HCl (Elavil) 25 mg BEDTIME ORAL 07/08/18 21:00 08/06/18 20:59 Dextrose (Dextrose 50%) 25 ml Q30M PRN IV Hypoglycemia 07/08/18 15:30 08/07/18 10:27 Dextrose (Dextrose 50%) 50 ml Q30M PRN IV hypoglycemia 07/08/18 15:30 08/07/18 10:29 Gabapentin (Neurontin) 300 mg THREE TIMES A DAY ORAL 07/08/18 18:00 08/07/18 08:59 07/09/18 13:04 Heparin Sodium (Porcine) (Heparin 5000 units/ml) 5,000 units EVERY 12 HOURS SUBQ 07/08/18 21:00 08/06/18 20:59 07/09/18 09:35 Insulin Aspart (NovoLOG) BEFORE MEALS AND HS SUBQ 07/08/18 16:30 08/07/18 16:29 07/09/18 17:06 Ondansetron HCl (Zofran) 4 mg Q6H PRN IVP Nausea & Vomiting 07/08/18 16:00 08/06/18 15:59 Potassium Chloride (K-Dur) 40 meq DAILY ORAL 07/09/18 09:00 08/08/18 08:59 07/09/18 09:36 Allergies: Coded Allergies: No Known Allergies (Unverified , 10/31/14) ROS Limited/Unobtainable: No Constitutional: Reports: no symptoms HEENT: Reports: no symptoms Cardiovascular: Reports: no symptoms Respiratory: Reports: no symptoms Gastrointestinal/Abdominal: Reports: no symptoms Genitourinary: Reports: no symptoms Neurologic/Psychiatric: Reports: no symptoms Subjective 38 YO M admitted with hyperglycemia. Now DKA. Cover for Int Med-Dr Baires Objective Last Vital Signs Date Time Temp Pulse Resp B/P (MAP) Pulse Ox O2 Delivery O2 Flow Rate FiO2 07/09/18 16:00 98.2 84 18 106/74 (85) 99 07/09/18 04:00 Room Air 07/08/18 19:43 21 General Appearance: WD/WN, no apparent distress, alert EENT: PERRL/EOMI, normal ENT inspection Neck: non-tender, normal alignment, supple, normal inspection Cardiovascular: normal peripheral pulses, normal rate, regular rhythm, no gallop/murmur, no JVD Respiratory/Chest: chest wall non-tender, lungs clear, normal breath sounds, no respiratory distress, no accessory muscle use Abdomen: normal bowel sounds, non tender, soft, no organomegaly, no mass Extremities: normal range of motion, non-tender Neurologic: numerical control tool programmer II-XII grossly normal, no motor/sensory deficits Skin: normal pigmentation, warm/dry Laboratory Tests Test 07/08/18 18:00 07/09/18 07:15 Sodium Level 137 MMOL/L (136-145) 137 MMOL/L (136-145) Potassium Level 3.3 MMOL/L (3.5-5.1) L 3.1 MMOL/L (3.5-5.1) L Chloride Level 105 MMOL/L (98-107) 104 MMOL/L (98-107) Carbon Dioxide Level 21 MMOL/L (21-32) 24 MMOL/L (21-32) Anion Gap 11 mmol/L (5-15) 9 mmol/L (5-15) Blood Urea Nitrogen 12 mg/dL (7-18) 8 mg/dL (7-18) Creatinine 0.6 MG/DL (0.55-1.30) 0.6 MG/DL (0.55-1.30) Estimat Glomerular Filtration Rate > 60 mL/min (>60) > 60 mL/min (>60) Glucose Level 200 MG/DL (74-106) #H 192 MG/DL (74-106) H Calcium Level 7.8 MG/DL (8.5-10.1) L 8.1 MG/DL (8.5-10.1) L Total Bilirubin 0.4 MG/DL (0.2-1.0) 0.4 MG/DL (0.2-1.0) Aspartate Amino Transf (AST/SGOT) 12 U/L (15-37) L 12 U/L (15-37) L Alanine Aminotransferase (ALT/SGPT) 16 U/L (12-78) 15 U/L (12-78) Alkaline Phosphatase 81 U/L (46-116) 76 U/L (46-116) Total Protein 4.6 G/DL (6.4-8.2) L 4.9 G/DL (6.4-8.2) L Albumin 2.6 G/DL (3.4-5.0) L 2.6 G/DL (3.4-5.0) L Globulin 2.0 g/dL 2.3 g/dL Albumin/Globulin Ratio 1.3 (1.0-2.7) 1.1 (1.0-2.7) White Blood Count 3.0 K/UL (4.8-10.8) L Red Blood Count 3.84 M/UL (4.70-6.10) L Hemoglobin 11.3 G/DL (14.2-18.0) L Hematocrit 32.5 % (42.0-52.0) L Mean Corpuscular Volume 85 FL (80-99) Mean Corpuscular Hemoglobin 29.3 PG (27.0-31.0) Mean Corpuscular Hemoglobin Concent 34.6 G/DL (32.0-36.0) Red Cell Distribution Width 12.6 % (11.6-14.8) Platelet Count 173 K/UL (150-450) Mean Platelet Volume 6.5 FL (6.5-10.1) Neutrophils (%) (Auto) % (45.0-75.0) Lymphocytes (%) (Auto) % (20.0-45.0) Monocytes (%) (Auto) % (1.0-10.0) Eosinophils (%) (Auto) % (0.0-3.0) Basophils (%) (Auto) % (0.0-2.0) Differential Total Cells Counted 100 Neutrophils % (Manual) 43 % (45-75) L Lymphocytes % (Manual) 50 % (20-45) H Monocytes % (Manual) 7 % (1-10) Eosinophils % (Manual) 0 % (0-3) Basophils % (Manual) 0 % (0-2) Band Neutrophils 0 % (0-8) Platelet Estimate Adequate Platelet Morphology Normal Red Blood Cell Morphology Normal Uric Acid 2.5 MG/DL (2.6-7.2) L Phosphorus Level 2.1 MG/DL (2.5-4.9) L Magnesium Level 2.1 MG/DL (1.8-2.4) Triglycerides Level 106 MG/DL (30-150) Cholesterol Level 177 MG/DL (< 200) LDL Cholesterol 101 mg/dL (<100) H HDL Cholesterol 58 MG/DL (40-60) Cholesterol/HDL Ratio 3.1 (3.3-4.4) L Thyroid Stimulating Hormone (TSH) 4.208 uiU/mL (0.358-3.740) Cortisol AM Sample Pending Intake and Output 07/08/18 07/09/18 18:59 06:59 Intake Total 690.5 ml 120 ml Output Total 600 ml Balance 90.5 ml 120 ml Intake Oral 240 ml 120 ml IV Total 450.5 ml Output Urine Total 600 ml # Voids 2 Assessment/Plan Problem List: (1) Diabetes type I (2) Pancreatitis (3) SIRS (systemic inflammatory response syndrome) (4) DKA (diabetic ketoacidoses) Assessment & Plan: Continue novolog sliding scale. (5) Hypokalemia Assessment & Plan: replace potassium Status: progressing Osmin Bey MD Jul 09, 2018 17:29
--- NOTE | 2018-07-09 17:40 | NUR ---
NURSE NOTES: pt has order to discharge. pt is stable. V/S stable. all discharge assessment and instructions done and pt verbally confirmed to understand all. documented instructions given to pt. all belongings are with pt and pt signed belongings paper. pt refused to informed family regarding discharging. pt consumed 90% of dinner. iv access D/C. pt left hospital and refused to go down stairs with wheelchair.
[2018-07-09] MEDS ORDERED: Tubing IV Secondary IV ONE (17:44)
--- NOTE | 2018-07-11 13:16 | Discharge Summary ---
Discharge Summary Discharge Summary _ DATE OF ADMISSION: 07/07/2018 DATE OF DISCHARGE: 07/09/2018 DISCHARGED BY: Dr. Baires REASON FOR ADMISSION: 38 years old male with past medical history of diabetes mellitus , insulin dependent, pancreatitis, presented to emergency department complaining of generalized weakness . Per paramedics blood glucose was above 500. He denied vomiting. He denied fever and chills. Patient reported generalized weakness Patient reported prior history of DKA, Upon evaluation vital signs revealed tachycardia with heart rate 115 and tachypnea with respiratory rate 32. Pulse oximetry was 92% on room air. Laboratory workup revealed no leukocytosis , stable hemoglobin hematocrit . BUN 27 ,creatinine 1.6. Bicarbonate 7. Anion gap 31. Glucose 547. Troponin negative. EKG revealed sinus tachycardia , no acute ischemic changes. Stable LFT and lipase. Urinalysis with +2 protein , +4 glucose , +4 ketones, no evidence of UTI. Urine toxicology screen was negative. Chest x-ray revealed no acute cardiopulmonary process. 1 amp of bicarb was given. Patient started on IV fluids and insulin drip and was transferred to ICU for further management. CONSULTANTS: pulmonary/director digital sales Dr. Raygoza refrigerating machine operator Dr. Escalante [facility] COURSE: Patient admitted to ICU. Patient started on generous IV hydration and insulin drip per protocol with close monitoring of blood glucose, electrolytes and bicarbonate. When anion gap closed, patient was transitioned to long-acting Levemir and short acting pre-meal insulin. Hemoglobin A1c 13.5 clearly not at goal. Patient was encouraged to continue with anti-glycemic medication regimen and diabetic diet. Patient will need close and frequent follow-up with primary care provider to optimize anti-glycemic regimen and bring blood sugar under control. Blood pressure remained stable. Explosives Detonator closely followed. Renal parameters and electrolytes were closely monitored. Electrolytes( potassium, phosphorus, magnesium,) replaced. Acute kidney injury , present on admission ( due to dehydration and DKA) resolved . Prior to discharge BUN 8 creatinine 0.6 . Lipid panel revealed borderline LDL of 101 , stable triglycerides and total cholesterol. Patient was educated on low-fat low-cholesterol diabetic diet. DVT and GI prophylaxis provided. Bowel regimen instituted. Patient clinically stabilized /blood sugar stable. Patient was ready for discharge home. FINAL DIAGNOSES: Diabetic ketoacidosis Diabetes mellitus type 1 out of control ( HgA1c -13.5) Electrolyte imbalance Acute kidney injury- resolved DISCHARGE MEDICATIONS: See Medication Reconciliation list. DISCHARGE INSTRUCTIONS: Patient was discharged home. Follow up with primary care provider in one week. I have been assigned to dictate discharge summary for this account. I was not involved in the patient's management. Bebe Montgomery NP Jul 11, 2018 13:16
== END 2018-07-09 17:45 | disposition home or self-care (01) | DRG 638 ==
LOC: EDBD 14:02 → EMR 14:37 → ICU 15:02 → EDBEDREQ 15:24 → 4E 07-08 16:00
DX: E10.10 Type 1 diabetes mellitus with ketoacidosis without coma (principal); N17.9 Acute kidney failure, unspecified; E87.8 Other disorders of electrolyte and fluid balance, not elsewhere classified; R00.0 Tachycardia, unspecified; Z79.4 Long term (current) use of insulin
CPT/HCPCS: 36415; 71045; 80048; 80053; 80061; 80076; 80307; 81003; 82009; 82533; 82962; 83036; 83690; 83735; 84100; 84443; 84484; 84550; 85007; 85025; 85610; 85730; 87081; 93005; 93306; 94664; 96361; 96365; 96367; 96368; 96375; 99291; J1815; J8499